=== PATIENT | female | born 1940 | race Caucasian/White ===

== ENCOUNTER → 2018-02-25 | Outpatient (CLI) | payer MEDICARE ==
[~2018-02-25] MED LIST: GADOBUTROL 7.5 MMOL/7.5 ML (GADAVIST) VIAL IV ONE
[2018-02-25 11:11] LABS: CREATININE SERUM 0.93 MG/DL (0.60-1.30)
--- NOTE | 2018-02-25 12:55 | Diagnostic Imaging Report ---
INDICATION: Mid spine pain and history of uterine cancer. TECHNIQUE: Multiplanar and multisequence acquisitions were acquired through the thoracic spine without the use of gadolinium. FINDINGS: There is slight accentuation of the normal thoracic kyphosis. There is a minimal compression fracture involving the superior endplate of T7. There does appear to be some edema suggesting this is acute. There is also mild chronic compression fracture of T9. The remaining thoracic vertebral body heights are well maintained. There is benign-appearing hemangioma in the T6 vertebral body. The visualized portions of the spinal cord are normal in signal intensity and morphology. Conus medullaris is seen at L1 and is normal in appearance. There is some mild broad-based annular bulging at T12-L1 where there is slight effacement of the ventral thecal sac. There is no other focal disc extrusion or high-grade spinal stenosis. There are no other focal soft tissue abnormalities. IMPRESSION: 1. Minimal acute compression fracture involving the superior endplate of T7. 2. Chronic T9 compression fracture with approximately loss of 15% vertebral body height. 3. Mild annular bulging at T12-L1 with slight effacement of the ventral thecal sac. 4. Otherwise, mild diffuse thoracic spondylosis. Dictated by: Dictated on workstation # [id number]
--- NOTE | 2018-02-25 16:52 | Diagnostic Imaging Report ---
INDICATION: Mid back pain. COMPARISON: Thoracic spine MRI performed concurrently. TECHNIQUE: Anterior and posterior scintigraphic images of the whole body were obtained after the intravenous injection of 26.7 mCi of Tc-99m MDP. FINDINGS: Linear bandlike radiotracer activity in the superior endplate of T7 is compatible with compression fracture seen on MRI. No additional abnormal foci of radiotracer activity. Normal activity within the kidneys and urinary bladder is identified. IMPRESSION: Acute to subacute compression fracture of T7 vertebral body, more completely detailed on thoracic spine MRI report, dictated separately. Dictated by: Dictated on workstation # [id number]
== END ==
LOC: RAD 10:37
PROVIDERS: ATTEND Orthopaedic Surgery
DX: M48.54XA Collapsed vertebra, not elsewhere classified, thoracic region, initial encounter for fracture (principal); M51.25 Other intervertebral disc displacement, thoracolumbar region; M47.814 Spondylosis without myelopathy or radiculopathy, thoracic region; Z85.42 Personal history of malignant neoplasm of other parts of uterus
CPT/HCPCS: 36415; 72157; 78306; 82565; 84520

== ENCOUNTER → 2019-09-22 | Outpatient (CLI) | payer MEDICARE, OTHER ==
--- NOTE | 2019-09-22 12:48 | Diagnostic Imaging Report ---
INDICATION: Postmenopausal state. COMPARISON: None available. FINDINGS: AP Spine L1-L4: [BMD (g/cm2): 1.041] [T-Score: -1.3] [Z-Score: 0.9] [BMD Previous: NA] [BMD % Change: NA] LT Hip Neck: [BMD (g/cm2): 0.598] [T-Score: -3.2] [Z-Score: -0.9] LT Hip Total: [BMD (g/cm2):0.634] [T-Score:-3.0] [Z-Score: -0.8] [BMD Previous: NA] [BMD % Change: NA] RT Hip Neck: [BMD (g/cm2):0.617] [T-Score:-3.0] [Z-Score:-0.7] RT Hip Total: [BMD (g/cm2):0.627] [T-score:-3.0] [Z-Score:-0.9] [BMD Previous:NA] [BMD % Change:NA] *Indicates significant change from prior examination based on 95% confidence level. World Health Organization criteria for BMD interpretation classify patients as Normal (T-score at or above -1.0), Osteopenic (T-score between -1.0 and -2.5) or Osteoporotic (T-score at or below -2.5). LIMITATIONS AND MODIFICATION: None. FRACTURE RISK (FRAX SCORE): The ten year probability of (%): Major Osteoporotic Fracture: [30.0] Hip Fracture: [14.4] IMPRESSION: 1. Osteoporosis. 2. Baseline examination. 3. See below National Osteoporosis Foundation guidelines on when to potentially initiate pharmacologic therapy. Based on the National Osteoporosis Foundation Guidelines, pharmacologic treatment should be initiated in any of the following, unless clinical conditions suggest otherwise: * Any patient with prior fragility fracture of the hip or vertebrae. A spine fracture indicates 5X risk for subsequent spine fracture and 2X risk for subsequent hip fracture. * Osteoporosis (T-score <-2.5). * Postmenopausal women and men age 50 and older with low bone mass/osteopenia (T-score between -1.0 and -2.5) by DXA and 10-year major osteoporotic fracture greater than 20% or a 10-year probability of hip fracture greater than 3%. These fracture risks are supplied above in the FRAX score, if applicable. * Clinician judgement and/or patient preferences may indicate treatment for people with 10-year fracture probabilities above or below these levels. Dictated by: Dictated on workstation # [id number]
== END ==
LOC: RAD 10:08
PROVIDERS: ATTEND Family Medicine
DX: M81.0 Age-related osteoporosis without current pathological fracture (principal); Z78.0 Asymptomatic menopausal state
CPT/HCPCS: 77080

== ENCOUNTER 2021-12-03 19:01 | Inpatient (IN) | payer MEDICARE, OTHER ==
[~2021-12-03] VITALS: Ht 155 cm; Wt 51.7 kg
--- OUTSIDE RECORDS SUMMARY | 2021-12-03 19:06 | XMS REPORT | Clinical Summary ---
Author Author [facility] Organization [facility] Address Unknown Phone Unavailable Care Team Providers Care Credit Historian Name Role Phone Sandra Garcia MD PCP Allergies Comments Active Allergy Reactions Severity Noted Date Legs went numb Lisinopril Other (See 04/14/2009 Comments) Medications End Date Status Medication Sig Dispensed Refills Start Date Active amLODIPine (NORVASC) 10 Take 10 mg by 0 MG tablet mouth every morning. Active traMADol (ULTRAM) 50 mg Take 100 mg 0 tablet by mouth as needed. Active omega-3 fatty acids-fish Take 1 0 oil 340-1,000 mg capsule by mouth daily. Active garlic cap Take 1,000 mg 0 by mouth daily. Active aspirin 81 MG EC tablet Take 81 mg by 0 mouth daily. Active atorvastatin (LIPITOR) 40 Take 1 tablet 30 tablet 2 MG tabletIndications: (40 mg total) 9 prevention of by mouth cerebrovascular accident nightly. Active ondansetron (ZOFRAN) 8 MG Take 1 tablet 30 tablet 2 tabletIndications: (8 mg total) 1 Neuroendocrine tumor by mouth every 12 (twelve) hours as needed for nausea (for breakthrough nausea and vomiting). Active loperamide (IMODIUM) 2 mg Take 2 30 capsule 2 capsuleIndications: capsules (4 1 Neuroendocrine tumor mg) by mouth at the onset of diarrhea, then 1 capsule (2 mg) by mouth every 2 hours until diarrhea-free for 12 hours. Active cholecalciferol, vitamin Take 2,000 0 D3, 50 mcg (2,000 unit) Units by cap capsule mouth daily. 10/27/2022 Active apixaban (ELIQUIS) 5 mg Take 1 tablet 60 tablet 11 tablet (5 mg total) 1 by mouth 2 (two) times a day. 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 MRI negative for CVA Left arm weakness for about 3 weeks. C T L shoulder with likely full thickness tear of supraspinatus tendon. - ECHO with bubble study today - APT: ASA and Plavix (previously on A only) - MRI head with chronic small vessel di sease - Risk stratification: A1C 6.1, FLP at outside facility with LDL at 140, mansi start High intensity statin, Lipito r 40 mg - Neurology consulted, appreciate them following - PT/OT, and rehab medicine consults: plan for HH vs outpatient PT - DVT ppx with SCDs - Case management for discharge kieran valadez Bilateral carotid artery stenosis 11/22/2018 Last Assessment & Plan: Formatting of this note might be differ ent from the original. Imaging done in Mar, 2018 showed signif icant narrowing of both external carotid arteries at the carotid bifurca tions, right internal carotid artery 60-80% stenosis, and 30-50% stenosis of the origin of the left internal carotid artery -MRA head and neck: 60% stenosis of pro ximal R ICA and 25% stenosis of prox L ICA -Vascular surgery consulted -Continue with ASA, Plavix and statin Essential hypertension 11/22/2018 Last Assessment & Plan: Formatting of this note might be differ ent from the original. Adequately controlled, cont home meds Acute pain of left shoulder 11/22/2018 Last Assessment & Plan: Formatting of this note might be differ ent from the original. Worsening left shoulder pain over the p ast 3 weeks, with left X-Ray from OSH reporting bursitis -CT Left shoulder to evaluate the joint , surrounding lymph nodes, and the left axilla lesions and to rule out sep tic joint (though less likely given normal WBC, no erythema or edema) Left bundle branch block (LBBB) 11/22/2018 Last Assessment & Plan: Formatting of this note might be differ ent from the original. Unclear if new, pt denies any cardiac i ssues -Monitor on telemetry -ECHO planned for 11/24 -Would likely benefit from ischemic ravin luation, pending ECHO, can likely be done on an outpatient basis as has no a ctive anginal complaints Weight loss 11/22/2018 Last Assessment & Plan: Formatting of this note might be differ ent from the original. -Nutrition consult Controlled type 2 diabetes mellitus without complicat ion, without long-term 11/22/2018 current use of insulin Last Assessment & Plan: Formatting of this note might be differ ent from the original. Taken off metformin in April due to hypo glycemia -FSBS AC/HS -SSI Level 2 -A1c 6.1 -Hypoglycemia protocol Tobacco abuse 11/22/2018 Last Assessment & Plan: Formatting of this note might be differ ent from the original. Has been using Nicoderm patch for the p ast month. Has 62 pack year history -Continue with Nicoderm patch lobsterman current use of anticoagulant Resolved Problems Problem Noted Date Resolved Date Abscess of left axilla 11/22/2018 11/25/2018 Last Assessment & Plan: Formatting of this note might be differ ent from the original. Worsening pain and growing abscess in l eft axilla -discussed with Pharmacy, will cover wi th Ancef -CT Left shoulder to further access, no abscess noted -Derm consulted Encounters Care Team Description Date Type Specialty Jenn Pickard RN 11/14/2021 Orders Only Medical Oncology Lashaun Hodge RN ANP-BC Paroxysmal atrial fibrillation (HCC) (Pr imary Dx); Essential hypertension; Controlled type 2 diabetes mellitus without complication, without long-term current use of insulin (HCC); Left bundle branch block (LBBB) 11/08/2021 Office Visit Cardiology Ela Gordon RN 11/06/2021 Abstract Cardiology Lashaun Hodge RN ANP-BC 11/01/2021 Documentation Cardiology Ruth Hernandez RN Cardiology test results 10/26/2021 Telephone Cardiology Micki Soria RN BP log 10/02/2021 Telephone Cardiology Jorge Luis Gaming MD 09/25/2021 Telephone Cardiology Bernadette Gilmore MD Rutherford, Barry D, MD Essential hypertension (Primary Dx); Neuroendocrine tumor; Bradycardia; Tobacco abuse; Current smoker; Moderate malnutrition (HCC) 09/25/2021 Initial consult Cardiology Rosa Hope RN 09/25/2021 Telephone Cardiology Jorge Luis Gaming MD 09/22/2021 Documentation Cardiology Ela Gordon RN 09/21/2021 Abstract Cardiology Therese Neri NUT GRADER 09/21/2021 Telephone Medical Oncology Bernadette Gilmore MD Neuroendocrine tumor (Primary Dx) 09/20/2021 Hospital Infusion Therapy Encounter Bernadette Gilmore MD Neuroendocrine tumor (Primary Dx); Metastasis to bone (HCC) 09/20/2021 Office Visit Medical Oncology Rasheeda Bull RN 09/15/2021 Telephone Medical Oncology MD Anel 09/11/2021 Documentation Radiation Therapy Bernadette Gilmore MD Ortiz, Teresa, MA Neuroendocrine tumor; Bradycardia 09/06/2021 Nurse Only Cardiology Bernadette Gilmore MD Neuroendocrine tumor 09/06/2021 Hospital Radiology Encounter Delia Michaels RN 09/06/2021 Telephone Cardiology Rasheeda Bull RN 09/06/2021 Telephone Medical Oncology Sandra Garcia MD 09/05/2021 Hospital Infusion Therapy Encounter Bernadette Gilmore MD Neuroendocrine tumor (Primary Dx); Bradycardia; Small bowel tumor 09/05/2021 Office Visit Medical Oncology Bernadette Gilmore MD Neuroendocrine tumor 09/05/2021 Lab Lab Rasheeda Bull RN 09/05/2021 Telephone Medical Oncology from Last 3 Months Immunizations Name Administration Dates Next Due Influenza, High Dose 08/22/2018, 09/07/2016, Seasonal, Preservative-free Novel [id number], 12/21/2009 All Formulations Pneumococcal Conjugate 08/19/2015 13-Valent Pneumococcal 08/22/2018 Polysaccharide 23-Valent Family History Medical History Relation Name Comments Heart disease Brother 1 Aneurysm Brother 2 Aneurysm Daughter Heart disease Mother Lung cancer Sister Relation Name Status Comments Brother 1 Brother 2 Daughter Mother Sister Social History Date Tobacco Use Types Packs/Day Years Used Current Some Day Smoker Cigarettes 0.25 62 Smokeless Tobacco: Never Used Comments Alcohol Use Standard Drinks/Week No 0 (1 standard drink = 0.6 o z pure alcohol) Sex Assigned at Date Recorded Female 06/14/2019 7:51 AM CDT Last Filed Vital Signs Reading Time Taken Comments Vital Sign 164/118 11/08/2021 3:21 PM [employer]ANE [employer]TAIN reg Blood Pressure 40 11/08/2021 3:21 PM [employer] [employer] Pulse 36.7 C (98 F) 11/08/2021 3:21 PM [employer] [employer] Temperature 20 09/20/2021 8:59 AM CDT Respiratory Rate 96% 09/20/2021 8:59 AM CDT Oxygen Saturation - - Inhaled Oxygen Concentration 52.6 kg (116 lb) 11/08/2021 3:21 PM [employer] [employer] Weight 154.9 cm (5' 1") 11/08/2021 3:21 PM [employer] [employer] Height 21.92 11/08/2021 3:21 PM [employer] [employer]TAIN Body Mass Index Plan of Treatment Care Team Description [place] [id number] [address] 12/08/2021 Office Visit Medical Oncology 12/08/2021 Appointment Infusion Therapy Ninfa Phillips MD [facility] [address] [phone] 06/19/2022 Office Visit Primary Care Health Maintenance Due Date Last Done Comments Diabetes Mellitus 1940 Ophthalmology Exam Diabetes Mellitus Urine 1940 Microalbumin Medicare Annual Wellness 1940 Spirometry # 1940 Td/Tdap# 1940 Tobacco Cessation 1940 Counseling # Diabetes Mellitus Foot 1951 Exam Zoster Vaccine# (1 of 2) 1991 Advance Care Plan 2006 Conversation Needed # Depression Screening 2006 PHQ-9 # Osteoporosis Screening 2006 Diabetes Mellitus 05/24/2019 11/23/2018 Hemoglobin A1C Lipid Screening 11/23/2019 11/23/2018 Influenza Vaccine (#1) 2021 08/19/2019, 08/22/2018, 09/07/2016, Additional history exists COVID-19 Vaccine (4 - 04/11/2022 10/12/2021, Booster for Moderna 03/08/2021, series) 02/08/2021 Fall Risk Assessment # 08/29/2022 08/29/2021 Pneumococcal Vaccine: 65+ Completed 08/22/2018, Years 08/19/2015 Implants Device Identifier Shelf Expiration Date Model / Serial / L ot Implanted Type Area Manufactur er Eye Lenses Procedures Comments Procedure Name Priority Date/Time Associated Diag nosis ECG Routine 11/08/2021 Paroxysmal atri al 3:18 PM [employer]PLANE CAPTAIN fibrillation (HCC) Essential hypertension Controlled type 2 diabetes mellitus without complication, without long-term current use of insulin (HCC) CARDIAC MONITORING PATCH Routine 10/18/2021 Neuro endocrine tumor 14 DAY 9:08 AM AIRPLANE CAPTAIN Bradycardia Essential hypertension Tobacco abuse Current smoker Moderate malnutrition (HCC) ECG STAT 09/06/2021 Neuroendocrine tumor 2:15 PM CDT Bradycardia NM DOTATATE PET CT SKULL Routine 09/06/2021 Neuro endocrine tumor BASE TO THIGH 9:16 AM CDT COMPREHENSIVE METABOLIC STAT 09/05/2021 Neuroe ndocrine tumor PANEL 9:16 AM CDT CBC AND DIFF (MANUAL DIFF STAT 09/05/2021 Neur oendocrine tumor IF NECESSARY) 9:16 AM CDT from Last 3 Months Results * Electrocardiogram (ECG) (11/08/2021 3:18 PM AIRPLANE CAPTAIN) Only the most recent of 2 results within the time period is included. QRSd 138 TRACEMASTER QT 453 TRACEMASTER QTC 552 TRACEMASTER ECGHR 89 TRACEMASTER ECGPR 136 TRACEMASTER Specimen Narrative TRACEMASTER - 11/08/2021 5:25 PM [employer]PLANE [employer]TAIN [facility] Test Date: 2021-11-08 Pat Name: CIELO HALL Department: [facility] Room: Gender: Female Desk Assistant: [id number] : 1940 Requested By: LASHAUN HODGE Order Number: [id number] Reading MD: Maricel Garvin Measurements Intervals [place] Rate: 89 P: 83 MD: 136 QRS: -24 QRSD: 138 T: 141 QT: 453 QTc: 552 Interpretive Statements Sinus rhythm Atrial premature complexes Left bundle branch block Electronically Signed On 11-08-2021 17:25:26 AIRPLANE CAPTAIN by Maricel Garvin Procedure Note Maricel Garvin MD - 11/08/2021 [facility] Test Date: 2021-11-08 Pat Name: CIELO HALL Department: [facility] Room: Gender: Female Desk Assistant: [id number] : 1940 Requested By: LASHAUN HODGE Order Number: [id number] Reading MD: Maricel Garvin Measurements Intervals [place] Rate: 89 P: 83 MD: 136 QRS: -24 QRSD: 138 T: 141 QT: 453 QTc: 552 Interpretive Statements Sinus rhythm Atrial premature complexes Left bundle branch block Electronically Signed On 11-08-2021 17:25:26 AIRPLANE CAPTAIN by Maricel Garvin Performing Organization Address City/State/ZIP Code P frida Number [facility]AC[facility]ASTER * Cardiac Monitoring Patch (14 day) (10/18/2021 9:08 AM AIRPLANE CAPTAIN) Modality Anatomical Region Laterality Cardiac Electrophysiology Specimen Narrative TRACEMASTER - 10/18/2021 11:11 AM AIRPLANE CAPTAIN [facility] Test Date: 2021-10-18 Pat Name: CIELO HALL Department: Room: Gender: Female Desk Assistant: : 1940 Requested By: JORGE LUIS GAMING Order Number: [id number] Reading MD: Doni Jj Interpretive Statements [facility] [place] Office [address] [place] [address] 3128 MONITORING PATCH REPORT Book Reviewer Date: 2021-10-18 RE: Cielo Hall : 1940 REFERRING PHYSICIAN: Dr. Sidney Gaming REASON FOR MONITORING PATCH: Bradycardia DATE RANGE: 09/25/21 to 10/09/21 NUMBER OF PAUSES: 0 CONCLUSIONS: 1. Paroxysmal atrial fibrillation with a 5 minute run and a 3 minute run - <1% overall burden. Avg HR in atrial fib = 93 bpm. 2. Numerous other short SVT episodes, wh ich may represent atrial tach vs. short runs of atrial fib. 3. Predominant rhythm was sinus rhythm ( 46-120 bpm, avg 63 bpm). No pauses. 4. Diary entries correlated with sinus r hythm and PACs. Electronically Signed On 10-18-2021 11:11:07 AIRPLANE CAPTAIN by Doni Jj Procedure Note Doni Jj MD - 10/18/2021 [facility] Test Date: 2021-10-18 Pat Name: CIELO HALL Department: Room: Gender: Female Desk Assistant: : 1940 Requested By: JORGE LUIS GAMING Order Number: [id number] Reading MD: Doni Jj Interpretive Statements [facility] [place] Office [address] [place] [address] 2317 MONITORING PATCH REPORT Book Reviewer Date: 2021-10-18 RE: Cielo Hall : 1940 REFERRING PHYSICIAN: Dr. Sidney Gaming REASON FOR MONITORING PATCH: Bradycardia DATE RANGE: 09/25/21 to 10/09/21 NUMBER OF PAUSES: 0 CONCLUSIONS: 1. Paroxysmal atrial fibrillation with a 5 minute run and a 3 minute run - <1% overall burden. Avg HR in atrial fib = 93 bpm. 2. Numerous other short SVT episodes, wh ich may represent atrial tach vs. short runs of atrial fib. 3. Predominant rhythm was sinus rhythm ( 46-120 bpm, avg 63 bpm). No pauses. 4. Diary entries correlated with sinus r hythm and PACs. Electronically Signed On 10-18-2021 11:11:07 AIRPLANE CAPTAIN by Doni Jj Performing Organization Address City/State/ZIP Code P frida Number [facility]ACEMASTER * NM Dotatate Pet CT skull base to thigh (09/06/2021 9:16 AM CDT) Modality Anatomical Region Laterality Nuclear Medicine Specimen Impressions [facility] - 09/06/2021 11:55 AM CDT 1. Evidence of disease progression with mildly worsened diffuse osseous metastatic lesions. 2. Unchanged size of abdominal, retroper itoneal, and mesenteric lymphadenopathy, with increased radiotracer uptake compared to prior. 3. Changes of partial small bowel resect ion without abnormal tracer uptake adjacent to surgical margins. ATTESTATION STATEMENT: The Staff Radiologist has personally reviewed the images and dictated, reviewed, or edited the final report. READING SITE: [facility] Narrative [facility] - 09/06/2021 11:55 AM CDT Patient: CIELO HALL Sex#: Citlali #: 1940 [place]#: [id number] Location: [facility] PET Ordering Provider: BERNADETTE GILMORE Procedure Requested: [id number] NM DOTATATE PET CT SKULL BASE TO THIGH Reason for Exam: Neuroendocrine tumor Exam Ordered: 09/06/2021 0654 Begin exam date/time: 09/06/2021 0654 Exam Date/Time: 09/06/2021 0916 INDICATION: Neuroendocrine tumor of the small bowel, status post small bowel resection COMPARISON FDG PET-CT: PET/CT May 2021. OTHER STUDIES USED FOR COMPARISON: CT abdomen and pelvis April 04, 2021. TECHNIQUE: Nuclear medicine PET scanning was performed from the skull base to the mid-thigh after the intravenous administration of 4.2 mCi Gallium 68 DOTATATE. Concurrent non-contrasted CT scanning was performed for attenuation correction and localization purposes only. These images do not constitute a diagnostic quality CT examination and are not used to diagnose disease independently of the PET images. FINDINGS: Head/Face: Physiologic uptake in the pituitary gland, extraocular muscles, large salivary glands and oropharynx. Neck: Physiologic uptake in the neck musculature.Physiologic activity in the thyroid. Lungs/Pleura: No abnormal uptake. Similar subsegmental atelectasis in the middle lobe and lingula. Mediastinum/Heart/Pericardium: Physiologic activity. Moderate thoracic atherosclerosis. Moderate coronary artery atherosclerosis. Thoracic Nodes: No abnormal uptake. Hepatobiliary: Physiological activity. Spleen: Physiological activity. Pancreas: Physiological activity. Adrenals: Physiological activity. Kidneys/Ureters/Bladder: Physiologic excretory activity. Abdominopelvic Nodes: Redemonstration of retroperitoneal lymphadenopathy including 1.6 cm short axis left para-aortic lymph node (series 4 image 99) with SUV max 51.0, previously measur ing 1.6 cm with SUV max 30.1. Redemonstration of periduodenal lymph node measuring 0.9 cm short axis (series 4 image 105) with SUV max 35.0, previously measuring 0.9 cm with SUV max 26.0. Bowel/Peritoneum/Mesentery: Redemonstrated clustered mesenteric lymphadenopathy measuring 2.9 x 2.0 cm (series 4 image 117), with SUV max 51.6, previously measuring 3.4 x 2.1 cm with SUV max 28.4. Postsurgical changes of right lower quadrant partial small bowel resection without adjacent abnormal radiotracer uptake. Colonic diverticulosis without diverticulitis. Advanced atherosclerosis of the abdominal aorta and branch vessels. Pelvic Organs: No abnormal uptake. Changes of hysterectomy. Bones/Soft Tissues: New ill-defined areas of radiotracer uptake involving the lateral left sacrum (series 650 image 48) with SUV max 6.9, as well as the left ischium (series 6 image 8 image 52). Additional diffuse osseous metastatic lesions redemonstrated, including left posterior acetabular lesion (series 608 image 31) with SUV max 33.4, previously 33.3. Stable subcutaneous density with subcentimeter calcifications along the inferior margin of the left gluteal fold measuring roughly 5.1 x 2.3 cm on image 57 series 4. No associated radiotracer activity. Correlate clinically to exclude sequela of pressure ulcer. Attention on follow-up imaging. Procedure Note Nestor Cano MD - 09/06/2021 Patient: CIELO HALL Sex#: F #: [id number] [place]#: [id number] Location: [facility] PET Ordering Provider: BERNADETTE GILMORE Procedure Requested: [id number] NM DOTATATE PET CT SKULL BASE TO THIGH Reason for Exam: Neuroendocrine tumor Exam Ordered: 09/06/2021 0654 Begin exam date/time: 09/06/2021 0654 Exam Date/Time: 09/06/2021 0916 INDICATION: Neuroendocrine tumor of the small bowel, status post small bowel resection COMPARISON FDG PET-CT: PET/CT May 2021. OTHER STUDIES USED FOR COMPARISON: CT abdomen and pelvis April 04, 2021. TECHNIQUE: Nuclear medicine PET scanning was performed from the skull base to the mid-thigh after the intravenous administration of 4.2 mCi Gallium 68 DOTATATE. Concurrent non-contrasted CT scanning was performed for attenuation correction and localization purposes only. These images do not constitute a diagnostic quality CT examination and are not used to diagnose disease independently of the PET images. FINDINGS: Head/Face: Physiologic uptake in the pituitary gland, extraocular muscles, large salivary glands and oropharynx. Neck: Physiologic uptake in the neck musculature.Physiologic activity in the thyroid. Lungs/Pleura: No abnormal uptake. Similar subsegmental atelectasis in the middle lobe and lingula. Mediastinum/Heart/Pericardium: Physiologic activity. Moderate thoracic atherosclerosis. Moderate coronary artery atherosclerosis. Thoracic Nodes: No abnormal uptake. Hepatobiliary: Physiological activity. Spleen: Physiological activity. Pancreas: Physiological activity. Adrenals: Physiological activity. Kidneys/Ureters/Bladder: Physiologic excretory activity. Abdominopelvic Nodes: Redemonstration of retroperitoneal lymphadenopathy including 1.6 cm short axis left para-aortic lymph node (series 4 image 99) with SUV max 51.0, previously measur ing 1.6 cm with SUV max 30.1. Redemonstration of periduodenal lymph node measuring 0.9 cm short axis (series 4 image 105) with SUV max 35.0, previously measuring 0.9 cm with SUV max 26.0. Bowel/Peritoneum/Mesentery: Redemonstrated clustered mesenteric lymphadenopathy measuring 2.9 x 2.0 cm (series 4 image 117), with SUV max 51.6, previously measuring 3.4 x 2.1 cm with SUV max 28.4. Postsurgical changes of right lower quadrant partial small bowel resection without adjacent abnormal radiotracer uptake. Colonic diverticulosis without diverticulitis. Advanced atherosclerosis of the abdominal aorta and branch vessels. Pelvic Organs: No abnormal uptake. Changes of hysterectomy. Bones/Soft Tissues: New ill-defined areas of radiotracer uptake involving the lateral left sacrum (series 650 image 48) with SUV max 6.9, as well as the left ischium (series 6 image 8 image 52). Additional diffuse osseous metastatic lesions redemonstrated, including left posterior acetabular lesion (series 608 image 31) with SUV max 33.4, previously 33.3. Stable subcutaneous density with subcentimeter calcifications along the inferior margin of the left gluteal fold measuring roughly 5.1 x 2.3 cm on image 57 series 4. No associated radiotracer activity. Correlate clinically to exclude sequela of pressure ulcer. Attention on follow-up imaging. IMPRESSION 1. Evidence of disease progression with mildly worsened diffuse osseous metastatic lesions. 2. Unchanged size of abdominal, retroper itoneal, and mesenteric lymphadenopathy, with increased radiotracer uptake compared to prior. 3. Changes of partial small bowel resect ion without abnormal tracer uptake adjacent to surgical margins. ATTESTATION STATEMENT: The Staff Radiologist has personally reviewed the images and dictated, reviewed, or edited the final report. READING SITE: [facility] Performing Organization Address City/State/ZIP Code P frida Number [id number] * Comprehensive Metabolic Panel (09/05/2021 9:16 AM CDT) Sodium 141 133 - 147 MEQ/L [facility] Potassium 4.9 3.5 - 5.3 MEQ/L [facility] Chloride 103 96 - 112 MEQ/L [facility] Carbon Dioxide 30 20 - 32 MEQ/L [facility] Anion Gap 8 5 - 17 [facility] Calcium 9.1 8.4 - 10.5 mg/dL [facility] Glucose 163 (H) 70 - 100 mg/dL [facility] Protein Total 7.5 6.0 - 8.2 g/dL [facility] Serum [facility] Albumin 3.8 3.5 - 5.0 g/dL [facility] Alkaline 82 42 - 140 IU/L [facility] Phosphatase [facility] Alanine 25 0 - 34 IU/L [facility] Aspartate 44 15 - 46 IU/L [facility] e Bilirubin Total 1.5 (H) 0.2 - 1.3 mg/dL [facility] Blood Urea 13 7 - 26 mg/dL [facility] Creatinine 1.0 0.4 - 1.1 mg/dL [facility] eGFR Female AA 64 60 - 200 [facility] mL/min/1.73sq [facility] eGFR Female 53 (L) 60 - 200 [facility] Non-AA mL/min/1.73sq [facility] Specimen Blood Performing Organization Address City/State/ZIP Code P frida Number [facility] [address] [place] [address] LABORATORIES [facility] [address] [place] [address] * CBC and Diff (manual diff if necessary) (09/05/2021 9:16 AM CDT) WBC 3.83 (L) 4.00 - 11.00 TH/uL [facility] RBC 5.04 (H) 4.00 - 5.00 MIL/uL [facility] Hemoglobin 13.4 12.0 - 15.0 g/dL [facility] Hematocrit 43 36 - 45 % [facility] [facility] MCV 86 80 - 99 fL [facility] MCH 27 27 - 34 pg [facility] MCHC 31 (L) 32 - 36 % [facility] RDW 20.2 (H) 11.5 - 14.5 % [facility] Platelet Count 146 140 - 400 TH/uL [facility] Nucleated RBCs 0 0 - 0 /100 [facility] % Neutrophils 57 45 - 78 % [facility] %Lymphocytes 26 15 - 47 % [facility] % Monocytes 9 0 - 12 % [facility] %Eosinophils 5 0 - 7 % [facility] %Basophils 2 0 - 2 % [facility] % Imm Grans 1 0 - 1 % [facility] # Granulocytes 2.21 1.70 - 6.80 TH/uL [facility] # Lymphocytes 1.01 1.00 - 3.30 TH/uL [facility] # Monocytes 0.35 0.20 - 0.90 TH/uL [facility] # Eosinophils 0.19 0.00 - 0.40 TH/uL [facility] # Basophils 0.07 0.00 - 0.10 TH/uL [facility] Specimen Blood Performing Organization Address City/State/ZIP Code P frida Number [facility] [address] [place] [address] LABORATORIES [facility] [address] [place] [address] from Last 3 Months Insurance Type Payer Benefit Subscriber ID Effective Phone Address Plan / Dates Group Medicare MEDICARE MEDICARE [id number] 2006-P [phone] WPS GHA PART A B resent ATTN CLAIMS DEPT [address] [place] [address] COMMERCIAL-NONCONTRACTED MISC [id number] 2013-P [address] [place] [id number] [place] [address] 1 Cielo Hall Personal/F Self [address] am[place] (Home) [place], [place] [address] Cielo Hall Personal/F Self [address] [place] (Home) [place] [address] 1 Advance Directives For more information, please contact: [phone] Patient Logistics Management Specialist Explanation Type Date Recorded Advance Directives and Living Will Power of Loan Clerk Health Care Directive Date Inactivated Comments Code Status Date Activated 06/23/2021 10:36 AM Full Code 04/18/2021 3:08 PM 11/25/2018 3:23 PM Full Code 11/22/2018 9:59 PM Care Teams Start Date End Date Credit Historian Relationship Specialty 11/22/18 Sandra Garcia MD PCP - General Family [address] Medicine [place], [place] [id number]
--- OUTSIDE RECORDS SUMMARY | 2021-12-03 19:06 | XMS REPORT | Encounter Summary ---
Author Author [facility] Organization [facility] Address Unknown Phone Unavailable Care Team Providers Care Research And Development Manager Name Role Phone Sandra Garcia MD PCP Reason for Visit * Reason Onset Date Comments Cardiology test results 10/26/2021 Encounter Details Care Team Description Date Type Department Ruth Hernandez RN Cardiology test results 10/26/2021 Telephone [facility] [address] [facility] [address] [place], [place] [id number] Social History Date Tobacco Use Types Packs/Day Years Used Current Some Day Smoker Cigarettes 0.25 62 Smokeless Tobacco: Never Used Comments Alcohol Use Standard Drinks/Week No 0 (1 standard drink = 0.6 o z pure alcohol) Sex Assigned at Date Recorded Female 06/14/2019 7:51 AM CDT documented as of this encounter Miscellaneous Notes * Telephone Encounter - Mehdi Bhatia RN - 10/27/2021 5:00 PM MANAGER SOFTWARE Pt's Daughter Muriel called in, expressing frustration resulting from Pt's frustr ation about her PAFib diagnosis and the cost of Eliquis. Was able to work with shayy edmondson to get Pt in with [facility] on 11/08. Muriel V/U and expressed thanks. Ed Savi reina to call Pt's insurance company to see if an alternative "blood thinner" might be cheaper. Also advised for Pt to continue taking Eliquis and that samples can be given out if Pt needs to apply for Pt assist program. Muriel V/U. GER SOFTWARE * Telephone Encounter - Margaux Call - 10/27/2021 3:14 PM MANAGER SOFTWARE 10/27 routing to [facility] to assist with scheduling this pt for first avail DEMETRICE GER SOFTWARE * Addendum Note - Marcela Cornelius RN - 10/27/2021 2:36 PM MANAGER SOFTWARE Addended by: MARCELA CORNELIUS on: 10/27/2021 02:36 PM Modules accepted: Orders GER SOFTWARE * Telephone Encounter - Marcela Cornelius RN - 10/27/2021 2:21 PM MANAGER SOFTWARE Pt called back, in reviewing chart we saw her for bradycardia and stopped metopr olol, off metoprolol heart rates were mostly in 60s and bp was on the lower side when she reported them, she is hesitant to start another bp medicine, she has no symptoms of palpitations or racing heart we agreed she will hold off on the di ltiazem and take just the eliquis she is going to keep a log of bp and heart rat e and see an DEMETRICE in a few weeks GER SOFTWARE * Telephone Encounter - Marcela Cornelius RN - 10/27/2021 12:34 PM MANAGER SOFTWARE Pt left message calling us back attempted to call back, lhusband answered and sh e was gone he will have her call us GER SOFTWARE * Telephone Encounter - Ruth Hernandez RN - 10/26/2021 1:40 PM MANAGER SOFTWARE Noted zio patch results and recs per Dr. Horne, called pt to discuss. Was only able to leave general message on VM stating we have her results and would l jon to discuss them and plan when she returns call to our nurse line, red team # provided. Did not update med list/send in Rx's until we speak to pt. GER SOFTWARE * Telephone Encounter - Ruth Hernandez RN - 10/26/2021 1:39 PM MANAGER SOFTWARE ----- Message from Tejas Trevino MD sent at 10/18/2021 11:46 AM MANAGER SOFTWARE ----- Note short runs of atrial fibrillation therefore start on Cardizem 120mgs daily and Eliquis 5mgs bid and see back in the office in 4 weeks GER SOFTWARE documented in this encounter Plan of Treatment Care Team Description [place] [address] [id number] 12/08/2021 Office Visit Medical Oncology 12/08/2021 Appointment [place] [address] [place] [id number] 06/19/2022 Office Visit Primary Care documented as of this encounter Visit Diagnoses Not on filedocumented in this encounter Care Teams Start Date End Date Research And Development Manager Relationship Specialty 11/22/18 Sandra Garcia MD PCP - General Family [address] [place] [address] documented as of this encounter
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
--- OUTSIDE RECORDS SUMMARY | 2021-12-03 19:06 | XMS REPORT | Encounter Summary ---
Author Author [facility] Organization [facility] Address Unknown Phone Unavailable Care Team Providers Care Dormitory Counselor Name Role Phone Sandra Garcia MD PCP Encounter Details Care Team Description Date Type Department Lashaun Pemberton RN ANP- [address] [facility] [address] [place], [place] [id number] 11/01/2021 Documentation [facility] [address] [facility] [address] [place], [place] [id number] Social History Date Tobacco Use Types Packs/Day Years Used Current Some Day Smoker Cigarettes 0.25 62 Smokeless Tobacco: Never Used Comments Alcohol Use Standard Drinks/Week No 0 (1 standard drink = 0.6 o z pure alcohol) Sex Assigned at Date Recorded Female 06/14/2019 7:51 AM CDT documented as of this encounter Plan of Treatment Care Team Description [place] [address] [facility] [address] [place] [address] 12/08/2021 Office Visit Medical Oncology 12/08/2021 Appointment Infusion Therapy Ninfa Phillips MD [address] [facility] [address] [place] [address] 06/19/2022 Office Visit Primary Care documented as of this encounter Visit Diagnoses Not on filedocumented in this encounter Care Teams Start Date End Date Dormitory Counselor Relationship Specialty 11/22/18 Sandra Garcia MD PCP - General [facility] [address] [place] [address] documented as of this encounter
--- OUTSIDE RECORDS SUMMARY | 2021-12-03 19:06 | XMS REPORT | Encounter Summary ---
Author Author [facility] Organization [facility] Address Unknown Phone Unavailable Care Team Providers Care Regulatory Technician Name Role Phone Sandra Garcia MD PCP Encounter Details Care Team Description Date Type Department Ela Gordon RN 11/06/2021 Abstract [facility] [address] [facility] [address] [place] [address] Social History Date Tobacco Use Types Packs/Day Years Used Current Some Day Smoker Cigarettes 0.25 62 Smokeless Tobacco: Never Used Comments Alcohol Use Standard Drinks/Week No 0 (1 standard drink = 0.6 o z pure alcohol) Sex Assigned at Date Recorded Female 06/14/2019 7:51 AM CDT documented as of this encounter Plan of Treatment Care Team Description [place] [address] [address] 12/08/2021 Office Visit Medical Oncology 12/08/2021 Appointment Infusion Therapy Ninfa Phillips MD [address] [facility] [address] [place] [address] 06/19/2022 Office Visit Primary Care documented as of this encounter Visit Diagnoses Diagnosis supervisor intermediates current use of anticoagulant documented in this encounter Care Teams Start Date End Date Regulatory Technician Relationship Specialty 11/22/18 Sandra Garcia MD PCP - General Family [address] [place] [address] documented as of this encounter
--- OUTSIDE RECORDS SUMMARY | 2021-12-03 19:06 | XMS REPORT | Clinical Summary ---
Author Author [facility] Organization [facility] Address Unknown Phone Unavailable Care Team Providers Care Project Management Intern Name Role Phone Bernadette Fan MD Unavailable Source Comments Some departments are not documenting in the electronic medical record. If you d o not see the information that you expected, contact Release of Information in [facility] [employer] Information Management department at [phone] for further assistan ce in locating additional records.[facility] Allergies Not on File Medications Not on file Active Problems Not on file Immunizations Name Administration Dates Next Due Social History Date Tobacco Use Types Packs/Day Years Used Never Assessed Sex Assigned at Date Recorded Not on file Last Filed Vital Signs Not on file Plan of Treatment Health Maintenance Due Date Last Done Comments MEDICARE ANNUAL WELLNESS 1941 VISIT DTAP/TDAP VACCINES (1 - 1959 Tdap) HEPATITIS C SCREENING 1959 PHYSICAL (COMPREHENSIVE) 1959 EXAM SHINGLES RECOMBINANT 1991 VACCINE (1 of 2) OSTEOPOROSIS 2006 SCREENING/MONITORING PNEUMONIA (PPSV23) 2006 VACCINE (1 of 1 - PPSV23) INFLUENZA VACCINE 06/25/2021 07/07/2020 COVID-19 VACCINE (3 - 09/07/2021 03/08/2021, Booster for Moderna 02/08/2021 series) Results Not on filefrom Last 3 Months Insurance Type Payer Benefit Subscriber ID Effective Phone Address Plan / Dates Group Medicare MEDICARE MEDICARE [id number] 2006-P [phone] [address] [place] [address] [id number] 1 Advance Directives Patient Consumer Insight Manager Explanation Type Date Recorded Advance Directive/DPOA Care Teams Start Date End Date Project Management Intern Relationship Specialty 07/06/21 Bernadette Fan MD [facility] [address] [place] [address]
--- OUTSIDE RECORDS SUMMARY | 2021-12-03 19:06 | XMS REPORT | Encounter Summary ---
Author Author [facility] Organization [facility] Address Unknown Phone Unavailable Care Team Providers Care Mold Builder Name Role Phone Sandra Garcia MD PCP Encounter Details Care Team Description Date Type Department Jenn Pickard RN 11/14/2021 Orders Only [facility] [address] [facility] [address] [place] [address] Social History Date Tobacco Use Types Packs/Day Years Used Current Some Day Smoker Cigarettes 0.25 62 Smokeless Tobacco: Never Used Comments Alcohol Use Standard Drinks/Week No 0 (1 standard drink = 0.6 o z pure alcohol) Sex Assigned at Date Recorded Female 06/14/2019 7:51 AM CDT documented as of this encounter Plan of Treatment Care Team Description [place] [address] [address] 12/08/2021 Office Visit Medical Oncology 12/08/2021 Appointment Infusion Therapy Ninfa Phillips MD [address] [facility] [address] [place] [address] 06/19/2022 Office Visit Primary Care documented as of this encounter Visit Diagnoses Not on filedocumented in this encounter Care Teams Start Date End Date Mold Builder Relationship Specialty 11/22/18 Sandra Garcia MD PCP - General Family [address] [place] [address] documented as of this encounter
[2021-12-03] MEDS ORDERED: morphine INJ 10 MG/ML 1ML (SYR OR VIAL) IVP STA (19:30)
[2021-12-03 19:40] LABS: HEMATOCRIT 38 % (35-52); HEMOGLOBIN 11.7 g/dL (11.5-16.0); MEAN CORPUSCULAR HEMOGLOBIN 26 pg (25-34); MEAN CORPUSCULAR VOLUME 85 fL (80-99); WHITE BLOOD COUNT 4.8 10^3/uL (4.3-11.0)
[2021-12-03 19:41] LABS: BASOPHILS % (AUTO) 1 % (0-10); EOSINOPHILS # (AUTO) 0.1 10^3/uL (0.0-0.3); EOSINOPHILS % (AUTO) 2 % (0-10); LYMPHOCYTES # (AUTO) 0.9 X 10^3 (1.0-4.0); LYMPHOCYTES % (AUTO) 19 % (12-44); MEAN CORPUSCULAR HGB CONC 31 g/dL (32-36); MONOCYTES # (AUTO) 0.5 X 10^3 (0.0-1.0); MONOCYTES % (AUTO) 10 % (0-12); NEUTROPHILS # (AUTO) 3.3 X 10^3 (1.8-7.8); NEUTROPHILS % (AUTO) 68 % (42-75); PLATELET COUNT 133 10^3/uL (130-400)
[2021-12-03 19:58] LABS: CALCIUM 8.7 MG/DL (8.5-10.1); CREATININE SERUM 0.89 MG/DL (0.60-1.30); POTASSIUM 4.2 MMOL/L (3.6-5.0)
[2021-12-03 19:59] LABS: ALBUMIN 3.5 GM/DL (3.2-4.5); BILIRUBIN,TOTAL 0.7 MG/DL (0.1-1.0); TOTAL PROTEIN 7.3 GM/DL (6.4-8.2)
--- NOTE | 2021-12-03 20:04 | Diagnostic Imaging Report ---
INDICATION: Left hip pain. COMPARISON: None. EXAMINATION: Three views of the left femur. FINDINGS: No overt fracture or dislocation. Articular surfaces are age-appropriate. No osseous lesion. IMPRESSION: No fracture identified. Dictated by: Dictated on workstation # [id number]
--- NOTE | 2021-12-03 20:05 | Diagnostic Imaging Report ---
INDICATION: Left hip pain, fall. COMPARISON: None. EXAMINATION: Single view of the pelvis and two views of the left hip. FINDINGS: No overt fracture or dislocation. No osseous lesion is seen. IMPRESSION: No fracture identified. Dictated by: Dictated on workstation # [id number]
--- NOTE | 2021-12-03 21:10 | ED Hip Pain/Injury ---
General Chief Complaint: Hip/Pelvic Problems Stated Complaint: LT HIP PAIN Nursing Triage Note: pt arrives per EMS w/ c/o left hip pain. Pt was standing when she felt a "pop" in her hip, and then fell. Only c/o left hip pain. 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 Patient's reports standing and feeling a sudden left hip pop which felt sharp in her left hip. Patient then fell to her knees. Complains of left hip pain. Pain is sharp moderate to severe worse with movement. Patient left hip immobilized by EMS and fentanyl given prior to ED arrival. Left lower extremity neurovascularly intact. Left leg foreshortening without obvious deformity or rotation. No other symptoms or complaints Timing/Duration: just prior to arrival Severity: severe Location: hip (L) Method of Injury: other Modifying Factors: Improves With Other Associated Symptoms: other Allergies and Home Medications Allergies Coded Allergies: No Known Drug Allergies (Unverified , 02/25/18) Patient Home Medication List Home Medication List Reviewed: Yes Review of Systems Constitutional: see HPI EENTM: see HPI Respiratory: see HPI Cardiovascular: see HPI Gastrointestinal: see HPI Genitourinary: see HPI Musculoskeletal: see HPI Skin: see HPI Psychiatric/Neurological: See HPI Past Loduewa-Exrlqb-Oospeu Hx Patient Social History Tobacco Use?: Yes Tobacco type used: Cigarettes Smoking Status: Current Everyday Smoker Substance use?: No Alcohol Use?: No Pt feels they are or have been: No Immunizations Up To Date Influenza Vaccine Up-to-Date: Yes; Up-to-Date First/Initial COVID19 Vaccinat: Second COVID19 Vaccination Gary: Third COVID19 Vaccination Date: Past Medical History Surgery/Hospitalization HX: "Neuro-endocrine cancer" Hysterectomy, , cataracts Physical Exam Vital Signs Vital Signs - First Documented 12/03/21 19:37 Temp 36.6 Pulse 62 Resp 20 B/P (MAP) 184/52 (96) Capillary Refill : Less Than 3 Seconds Height, Weight, BMI Height: '" Weight: lbs. oz. kg; 20.00 BMI Method: General Appearance: Moderate Distress HEENT: PERRL/EOMI, Pharynx Normal Neck: Non Tender, Supple Cardiovascular: Regular Rate, Rhythm, No Edema, No Gallop Respiratory: Chest Non Tender, Lungs Clear Gastrointestinal: Non Tender, Soft Extremity: Pelvis Stable, Other (Left hip pain/tenderness, no deformity, left leg shortening no rotation.) Neurologic/Psychiatric: Alert, Oriented x3, No Motor/Sensory Deficits Progress/Results/Core Measures Results/Orders Lab Results Laboratory Tests Test 12/03/21 19:30 Range/Units White Blood Count 4.8 4.3-11.0 10^3/uL Red Blood Count 4.45 3.80-5.11 10^6/uL Hemoglobin 11.7 11.5-16.0 g/dL Hematocrit 38 35-52 % Mean Corpuscular Volume 85 80-99 fL Mean Corpuscular Hemoglobin 26 25-34 pg Mean Corpuscular Hemoglobin Concent 31 L 32-36 g/dL Red Cell Distribution Width 19.6 H 10.0-14.5 % Platelet Count 133 130-400 10^3/uL Mean Platelet Volume 9.0-12.2 fL Immature Granulocyte % (Auto) 1 % Neutrophils (%) (Auto) 68 42-75 % Lymphocytes (%) (Auto) 19 12-44 % Monocytes (%) (Auto) 10 0-12 % Eosinophils (%) (Auto) 2 0-10 % Basophils (%) (Auto) 1 0-10 % Neutrophils # (Auto) 3.3 1.8-7.8 X 10^3 Lymphocytes # (Auto) 0.9 L 1.0-4.0 X 10^3 Monocytes # (Auto) 0.5 0.0-1.0 X 10^3 Eosinophils # (Auto) 0.1 0.0-0.3 10^3/uL Basophils # (Auto) 0.0 0.0-0.1 10^3/uL Immature Granulocyte # (Auto) 0.1 0.0-0.1 10^3/uL Sodium Level 139 135-145 MMOL/L Potassium Level 4.2 3.6-5.0 MMOL/L Chloride Level 101 98-107 MMOL/L Carbon Dioxide Level 29 21-32 MMOL/L Anion Gap 9 5-14 MMOL/L Blood Urea Nitrogen 9 7-18 MG/DL Creatinine 0.89 0.60-1.30 MG/DL Estimat Glomerular Filtration Rate 61 BUN/Creatinine Ratio 10 Glucose Level 149 H 70-105 MG/DL Calcium Level 8.7 8.5-10.1 MG/DL Corrected Calcium 9.1 8.5-10.1 MG/DL Total Bilirubin 0.7 0.1-1.0 MG/DL Aspartate Amino Transf (AST/SGOT) 13 5-34 U/L Alanine Aminotransferase (ALT/SGPT) 6 0-55 U/L Alkaline Phosphatase 97 40-136 U/L Total Protein 7.3 6.4-8.2 GM/DL Albumin 3.5 3.2-4.5 GM/DL My Orders Orders - FIONA BARNES DO Cbc With Automated Diff (12/03/21 19:30) Comprehensive Metabolic Panel (12/03/21 19:30) Pelvis With Left Hip 2-3 View (12/03/21 19:30) Catheter(Urinary) Insert & Ass 03,15 (12/03/21 19:30) Morphine Injection (Morphine Injection (12/03/21 19:30) Femur 2 View Left (12/03/21 19:48) Ct Pelvis Wo (12/03/21 20:34) Vital Signs/I&O 12/03/21 12/03/21 19:37 19:50 Temp 36.6 36.1 Pulse 62 Resp 20 B/P (MAP) 184/52 (96) Blood Pressure Mean: 96 Departure Communication (Admissions) Pelvis left hip/left femur: No acute findings per radiology report CT pelvis: Ischium insufficiency fracture of left hip Patient unable to weight-bear secondary to pain. On pathological fracture identified on CT. Repeat pain medication given. Will admit to [facility] for PT OT consult in the morning and evaluation for short-term rehab as needed. Dr. Moreno accepts patient at 2140 Impression Primary Impression: Insufficiency fracture Additional Impression: Left hip pain Disposition: ADMITTED INPATIENT Condition: Stable Admissions Decision to Admit Reason: Admit from ER (General) Decision to Admit/Date: Dec 03, 2021 Time/Decision to Admit Time: 21:46 Departure-Patient Inst. Referrals: GABRIEL RAMIREZ MD (PCP/Family) Primary Care Physician FIONA BARNES DO Dec 03, 2021 21:10
--- NOTE | 2021-12-03 21:23 | Diagnostic Imaging Report ---
PROCEDURE: CT pelvis without contrast. TECHNIQUE: Multiple contiguous axial images were obtained through the pelvis without the use of intravenous contrast. Sagittal and coronal reformations were performed. Auto Exposure Controls were utilized during the CT exam to meet ALARA standards for radiation dose reduction. INDICATION: Left hip pain, popped, swelling. COMPARISON: None. FINDINGS: There is a nondisplaced fracture involving the posterior ischium just inferior to the acetabular joint space. No pathologic component is seen. There is diffuse osteopenia. There is no hip dislocation or femoral neck fracture. No joint effusion. IMPRESSION: Left posterior ilium fracture without displacement or intra-articular involvement. Dictated by: Dictated on workstation # [id number]
[2021-12-04] MEDS ORDERED: HYDROcodone/APAP 5 MG/325 MG (LORTAB) TAB PO ONE (01:15)
[2021-12-04 04:39] VITALS: BP 146/64
[2021-12-04] MEDS ORDERED: ONDANSETRON 4 MG/2 ML (SDV) Z0FRAN IV PRN (06:15)
[2021-12-04] MEDS: CATHETER FLUSH 10 ML SYR IV SCH ×3 (06:53→21:15)
[2021-12-04 07:52] VITALS: BP 162/56
[2021-12-04] MEDS: HYDROcodone/APAP 5 MG/325 MG (LORTAB) TAB PO PRN ×2 (09:35→17:24)
--- NOTE | 2021-12-04 11:14 | Consultation - Ortho ---
Consult - Ortho Subjective Date of Exam 12/04/21 Chief Complaint Left hip pain HPI/Events since last exam Mrs. Maldonado is a 80-year-old white female who experienced left hip pain yesterday afternoon when she reached down to pick a piece of paper up off the floor. She felt a pop and noted pain. She had difficulty bearing weight on the left lower extremity after the pop. She was seen in the emergency room where she is evaluated and x-rayed noted to have a fracture through her ischium on the left. No fracture of her hip. She has been treated for an endocrine tumor involving the left hip. This involved radiation treatment. This was noted on a PET scan. She had a recent PET scan but her daughter does not know exactly where her bony lesions are now. She was treated with radiation in [place] and sees an oncologist in [place]. She also saw an orthopedic oncologist for treatment of her hip lesion. They talked about internal fixation but she did not require surgery. Her last treatment was about 6 months ago according to her daughter. Prior to her hip pop yesterday she was not using a walker and had no hip pain Medical, Surgical History Reviewed and no additions or change Social History Reviewed and no additions or changes Family History Reviewed and no additions or change Review of Systems Reviewed and no additions or changes Allergies: Coded Allergies: atorvastatin (Verified Allergy, Mild, 12/04/21) patient states her feet and legs get cold Objective Exam Constitutional: [] HEENT: [] Neck: [] Cardiovascular: [] Respiratory: [] Gastrointestinal: [] Genitourinary: [] Skin: [] Back/Spine: [No pain with palpation] Extremities: [Pain over the left ischium. No pain over the greater trochanter. No hip pain with gentle range of motion. Negative straight leg raise. No pain at the knee or ankle. She can move her toes and has normal sensation. Good strength on dorsiflexion plantarflexion of the foot and ankle.] Neurologic: [] Psychiatric: [] Hematologic/lymphatic/immunologic: [] Vital Signs Vital Signs Date Time Temp Pulse Resp B/P (MAP) Pulse Ox O2 Delivery O2 Flow Rate FiO2 12/04/21 08:00 Room Air 12/04/21 07:52 36.2 64 18 162/56 (91) 93 Room Air 12/04/21 04:39 36.4 61 16 146/64 (91) 91 Room Air 12/04/21 03:19 Room Air 12/04/21 01:23 93 Room Air 12/04/21 01:15 61 20 159/70 92 12/04/21 01:00 57 18 167/57 91 12/04/21 00:00 59 20 178/62 93 12/03/21 23:00 59 177/55 93 12/03/21 22:00 56 20 183/56 94 12/03/21 21:30 57 20 170/58 93 12/03/21 21:00 58 20 158/53 92 12/03/21 20:30 59 20 173/59 92 12/03/21 20:00 65 18 147/83 92 12/03/21 19:50 36.1 12/03/21 19:45 67 18 189/67 94 12/03/21 19:37 36.6 62 20 184/52 (96) 12/03/21 19:30 66 20 184/52 94 I & O 12/04/21 07:00 Intake Total 0 ml Output Total 550 ml Balance -550 ml Lab Results Laboratory Tests 12/03/21 19:30: White Blood Count 4.8, Red Blood Count 4.45, Hemoglobin 11.7, Hematocrit 38, Mean Corpuscular Volume 85, Mean Corpuscular Hemoglobin 26, Mean Corpuscular Hemoglobin Concent 31L, Red Cell Distribution Width 19.6H, Platelet Count 133, Mean Platelet Volume , Immature Granulocyte % (Auto) 1, Neutrophils (%) (Auto) 68, Lymphocytes (%) (Auto) 19, Monocytes (%) (Auto) 10, Eosinophils (%) (Auto) 2, Basophils (%) (Auto) 1, Neutrophils # (Auto) 3.3, Lymphocytes # (Auto) 0.9L, Monocytes # (Auto) 0.5, Eosinophils # (Auto) 0.1, Basophils # (Auto) 0.0, Immature Granulocyte # (Auto) 0.1, Sodium Level 139, Potassium Level 4.2, Chloride Level 101, Carbon Dioxide Level 29, Anion Gap 9, Blood Urea Nitrogen 9, Creatinine 0.89, Estimat Glomerular Filtration Rate 61, BUN/Creatinine Ratio 10, Glucose Level 149H, Calcium Level 8.7, Corrected Calcium 9.1, Total Bilirubin 0.7, Aspartate Amino Transf (AST/SGOT) 13, Alanine Aminotransferase (ALT/SGPT) 6, Alkaline Phosphatase 97, Total Protein 7.3, Albumin 3.5 Imaging X-rays and CT scan were reviewed which shows no evidence of a bony lesion. No evidence of fracture involving the proximal femur or hip. There is a nondisplaced fracture noted through the ischium on the left on CT scan Assessment and Plan Assessment Pain improving since yesterday Problem List Unchanged Plan Treatment options were discussed with the patient and her daughter. I explained to them that I did not see any fracture in the hip or pelvis other than the ischium on the left. I do not see any evidence of destructive lesion or tumor. Same with radiology. I would recommend walker ambulation weightbearing as tolerated on the left lower extremity.If she continues with hip pain then follow-up with her orthopedic oncologist in [place] Final Diagonsis Nondisplaced ischial tuberosity fracture left pelvis Level of the visit: Level 3 ANDERSON HILL MD Dec 04, 2021 11:14
[2021-12-04] MEDS ORDERED: ASPI-999 PO (11:16)
[2021-12-04] MEDS ORDERED: APIX5TAB PO (11:16)
[2021-12-04] MEDS ORDERED: TRAM50TA3 PO (11:16)
[2021-12-04] MEDS ORDERED: OMG1KC PO (11:17)
[2021-12-04] MEDS ORDERED: GARL1TAB2 PO (11:17)
[2021-12-04] MEDS ORDERED: DOCU-26 PO (11:18)
[2021-12-04] MEDS ORDERED: ACET-2267 PO (11:18)
[2021-12-04 11:24] VITALS: BP 135/54
--- NOTE | 2021-12-04 11:49 | History & Physical-Hospitalist ---
ROBINSON HAYDEN 12/04/21 1149: History of Present Illness HPI/Chief Complaint This is a 80 y/o female with a PMH significant for an endocrine tumor involving her left hip s/p radiation to the effected area who presented to the ED with left hip pain. Pt states she was reaching over to grab a piece of paper when she felt a "pop" in her left hip which then lead to severe pain. Pain was described as sudden in onset with a sharp quality that worsened with movement. EMS immobilized the hip en route and gave fentanyl for pain control, which helped. In the ED, no obvious deformity or rotation was noted. CT performed in the ED noted diffuse osteopenia, and a nondisplaced fracture of the left ilium. No other acute damon abnormalities were noted. Today, the patient states she is doing well and that her pain is well managed. She states the hip only bothers her when she moves around too much. Source: patient Exam Limitations: no limitations Date Seen 12/04/21 Time Seen by a Provider: 08:45 Attending Physician Regi Moreno MD PCP No,Local Physician Referring Physician Date of Admission Dec 04, 2021 at 02:30 Home Medications & Allergies Home Medications Reviewed patient Home Medication Reconciliation performed by pharmacy medication reconciliations unit technician and/or nursing. Patients Allergies have been reviewed. Allergies Allergies Coded Allergies atorvastatin (Verified Allergy, Mild, 12/04/21) patient states her feet and legs get cold Past Wmqswjh-Pimtgh-Skkxot Hx Patient Social History Tobacco Use?: Yes Tobacco type used: Cigarettes Smoking Status: Current Everyday Smoker Smokeless Tobacco Frequency: Never a User Use of E-Cig and/or Vaping dev: No Substance use?: No Alcohol Use?: No Pt feels they are or have been: No Immunizations Up To Date Date of Influenza Vaccine: Sep 03, 2022 First/Initial COVID19 Vaccinat: Second COVID19 Vaccination Gary: Tetanus Booster (TDap): Less Than 5 Years Hepatitis A: No Hepatitis B: No Current Status status: No status: No Advance Directives: Yes Advance Directive Location: Family to bring in copy Communicates: Verbally Primary Language: Somali Is interpretation needed?: No Past Medical History Surgeries: Section, Eye Surgery (cataract removal), Hysterectomy Atrial 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 Recieved radition at [facility]) Did You Recieve Any Treatments: Yes What Type of Treatment Did You: Radiation Review of Systems Constitutional: No chills, No dizziness, No fever EENTM: no symptoms reported Respiratory: no symptoms reported Cardiovascular: no symptoms reported Gastrointestinal: no symptoms reported Genitourinary: no symptoms reported Musculoskeletal: joint pain (Left hip) Skin: no symptoms reported Psychiatric/Neurological: No Symptoms Reported Physical Exam Physical Exam Vital Signs Vital Signs - First Documented 12/03/21 12/03/21 12/04/21 19:30 19:37 01:23 Temp 36.6 Pulse 66 Resp 20 B/P (MAP) 184/52 Pulse Ox 94 O2 Delivery Room Air Capillary Refill : Less Than 3 Seconds Height, Weight, BMI Height: '" Weight: lbs. oz. kg; 21.51 BMI Method: General Appearance: No Apparent Distress, WD/WN Eyes: Bilateral Eye Normal Inspection, Bilateral Eye PERRL, Bilateral Eye EOMI HEENT: PERRL/EOMI Neck: Non Tender Respiratory: Chest Non Tender, Lungs Clear, Normal Breath Sounds, No Respiratory Distress Cardiovascular: Regular Rate, Rhythm, No Gallop, No Murmur Gastrointestinal: Non Tender, Soft Rectal: Deferred Extremity: Other (Pain and tenderness over the left ischial spine. Moves foot and toes appropriately on effected limb) Neurologic/Psychiatric: Alert, Oriented x3 Skin: Normal Color, Warm/Dry Results Results/Procedures Labs Laboratory Tests 12/03/21 19:30 Patient resulted labs reviewed. Imaging: Reviewed Imaging Report Assessment/Plan Admission Diagnosis Nondisplaced ischial tuberosity fracture left pelvis Admission Status: Observation Assessment and Plan This is a 80 y/o female with a hx of radiation treatment to the left hip 2/2 an "endocrine tumor" who presents after a fracture of the left ischial tuberosity Diagnosis/Problems Diagnosis/Problems (1) Pathologic fracture of ilium Onset Date: ~ 11/2021 Status: Acute Assessment & Plan: - Pain currently well managed w/ PRN Lortab 5mg - Will plan for ambulation as tolerated - Consult ortho; appreciate recs - Consult PT/OT; appreciate recs Qualifiers: Encounter type: initial encounter Qualified Codes: M84.454A - Pathological fracture, pelvis, initial encounter for fracture CATHLEEN CANNON DO 12/05/21 0520: History of Present Illness HPI/Chief Complaint CC: back pain HPI: 80 yr old WF with history of neuro endocrine tumor receiving radiation at [facility]. Pt was recently diagnosed with atrial fibrillation maintained on oral anticoagulation. Pt presented following a fall and Dr. Bryan consulted but it appears she has a left posterior ilium fracture. We have consulted Dr. Mcleod. We will continue taking care of the pain and pt might be a candidate for rehab. Source: patient Exam Limitations: no limitations Past Svzwzxn-Vzfxjp-Umiprv Hx Patient Social History Marrital Status: single Employed/Student: retired Past Medical History Atrial Fibrillation Review of Systems Constitutional: see HPI, weakness Musculoskeletal: back pain, joint pain (Left hip) Physical Exam Physical Exam General Appearance: No Apparent Distress, Chronically ill Eyes: Right Eye Normal Inspection, Right Eye PERRL HEENT: PERRL/EOMI, Normal ENT Inspection, Pharynx Normal, Moist Mucous Membranes Neck: Full Range of Motion, Normal Inspection, Non Tender Respiratory: Chest Non Tender, Lungs Clear, Normal Breath Sounds, No Accessory Muscle Use, No Respiratory Distress Cardiovascular: Regular Rate, Rhythm, No Edema, No Gallop, No JVD, No Murmur, Normal Peripheral Pulses Gastrointestinal: Normal Bowel Sounds, No Organomegaly, No Pulsatile Mass, Non Tender, Soft Back: Normal Inspection, Decreased Range of Motion Extremity: Normal Capillary Refill, Normal Inspection, Non Tender, No Calf Tenderness, No Pedal Edema, Other (Pain and tenderness over the left ischial spine. Moves foot and toes appropriately on effected limb) Neurologic/Psychiatric: Alert, Oriented x3, No Motor/Sensory Deficits, Normal Mood/Affect Skin: Normal Color, Warm/Dry Lymphatic: No Adenopathy Assessment/Plan Admission Diagnosis Assessment: Left pelvic fracture Neuroendocrine tumor Undergoing radiation treatment AF PLan: Home meds Pain control Admission Status: Inpatient Order (span 2 midnights) Reason for Inpatient Admission: pelvic fracture Supervisory-Addendum Brief Verification & Attestation Participated in pt care: history, MDM, physical Personally performed: exam, history, MDM, supervision of care Care discussed with: Medical Student Procedures: n/a Results interpretation: Verified all documentation Verification and Attestation of Medical Student E/M Service A medical student performed and documented this service in my presence. I reviewed and verified all information documented by the medical student and made modifications to such information, when appropriate. I personally performed the physical exam and medical decision making. Cathleen Cannon, Dec 05, 2021,05:17 ROBINSON HAYDEN Dec 04, 2021 11:49 CATHLEEN CANNON DO Dec 05, 2021 05:20
--- NOTE | 2021-12-04 11:54 | Physical Therapy Evaluation ---
PT Evaluation-General Medical Diagnosis Admission Date Dec 04, 2021 at 02:30 Medical Diagnosis: left hip pain Onset Date: Dec 04, 2021 Therapy Diagnosis Therapy Diagnosis: generalized weaknes/debility Precautions Precautions/Isolations: Fall Prevention, Standard Precautions Referral Physician: Ketty Reason for Referral: Evaluation/Treatment Medical History Pertinent Medical History: Smoking Additional Medical History neuroendocrine cancer Current History EMS from home secondary patient felt a "pop" in her left hip while bending over to get something off floor. Reviewed History: Yes Social History Home: Single Level Current Living Status: Alone Prior Prior Level of Function SCALE: Activities may be completed with or without assistive devices. 4-Wuyvicybta-awxkqtw completes the activity by him/herself with no assistance from a helper. 5-Set-up or Clean-up Assistance-helper sets up or cleans up; patient completes activity. [place] assists only prior to or following the activity. 4-Supervision or Touching Assistance-helper provides verbal cues and/or touching/steadying and/or contact guard assistance as patient completes activity. Assistance may be provided throughout the activity or intermittently. 3-Partial/Moderate Assistance-helper does LESS THAN HALF the effort. [place] lifts, holds or supports trunk or limbs, but provides less than half the effort. 2-Substantial/Maximal Assistance-helper does MORE THAN HALF the effort. [place] lifts or holds trunk or limbs and provides more than half the effort. 3-Csiodjdhm-tbboow does ALL the effort. Patient does none of the effort to complete the activity. Or, the assistance of 2 or more helpers is required for the patient to complete the activity. If activity was not attempted, code reason: 7-Patient Refused. 9-Not Applicable-not attempted and the patient did not perform the activity before the current illness, exacerbation or injury. 10-Not Attempted due to Environmental Limitations-(lack of equipment, weather restraints, etc.). 88-Not Attempted due to Medical Conditions or Safety Concerns. Bed Mobility: 6 Transfers (B,C,W/C): 6 Gait: 6 Indoor Mobility (Ambulation): Independent PT Evaluation-Current Subjective Patient agrees to PT. Family present and very attentive. Objective Patient Orientation: Normal For Age Attachments: Mchugh Catheter ROM/Strength ROM Lower Extremities bilateral LE WFL Strength Lower Extremities 3/5 grossly bilateral LE (no formal testing) Integumentary/Posture Bladder Incontinence: Mchugh Cath Posture WFL Neuromuscular (Tone, Coordination, Reflexes) grossly intact Sensory Vision: Wears Glasses Hearing: Functional Transfers Lying to Sitting/Side of Bed(Q: 4 Sit to Stand (QC): 3 (mod) Chair/Eym-ht-Yshfr Xfer(QC): 3 (min) Gait Does the Patient Walk?: Yes Mode of Locomotion: Walk Anticipated Mode of Locomotion: Walk Walk 10 feet (QC): 3 Walk 50 ft with 2 Turns(QC): 3 Gait Assistive Device: FWW Comments/Gait Description slow, slightly antalgic Balance Sitting Static: Normal Sitting Dynamic: Normal Standing Static: Fair Standing Dynamic: Fair Picking up an Object (QC): 88 Assessment/Needs 80 y.o. female, will benefit from skilled PT to address functional strength and mobility to improve current LOF. Rehab Potential: Fair PT Residential Goals Residential Goals PT [place] Goals Time Frame: Dec 16, 2021 Roll Left & Right (QC): 5 Sit to Lying (QC): 5 Lying-Sitting on Side/Bed(QC): 5 Sit to Stand (QC): 5 Chair/Cgu-gc-Qjgdo Xfer(QC): 5 Toilet Transfer (QC): 5 Walk 10 feet (QC): 4 Walk 50ft with 2 Turns (QC): 4 Walk 150 ft (QC): 4 PT Plan Problem List Problem List: Activity Tolerance, Functional Strength, Safety, Balance, Gait, Transfer, Bed Mobility Treatment/Plan Treatment Plan: Continue Plan of Care Treatment Plan: Bed Mobility, Education, Functional Activity [place], Functional Strength, Gait, Safety, Therapeutic Exercise, Transfers Treatment Duration: Dec 16, 2021 Frequency: 6 times per week Estimated Hrs Per Day: .5 hour per day Patient and/or Family Agrees t: Yes Time/GCodes Time In: 1121 Time Out: 1133 Total Billed Treatment Time: 12 Total Billed Treatment 1 visit EVModC 12 min SAVANNAH MCDONALD PT Dec 04, 2021 11:54
--- NOTE | 2021-12-04 13:53 | Occupational Therapy Eval ---
OT Evaluation-General/PLF Medical Diagnosis Admission Date Dec 04, 2021 at 02:30 Medical Diagnosis: left hip pain Onset Date: Dec 04, 2021 Therapy Diagnosis Therapy Diagnosis: Impaired balance, strength, adl status Precautions Precautions/Isolations: Fall Prevention, Standard Precautions Referral Physician: Ketty Referral Reason: Evaluation/Treatment Medical History Pertinent Medical History: Smoking Additional Medical History endocrine tumor involving L hip, treated with radiation Current History Presents to ER with L hip pain. Imaging reveals no hip dislocation/fx or femoral neck fracture. Pt does have pelvis nondisplaced fx through ischium. Per Ortho orders, pt can be WBAT with walker. Reviewed History: Yes Social History Home: Single Level Current Living Status: Alone Pt currently lives alone in a single story home. Per family, plan is to move in with granddaughter who lives in a multilevel home. Goal to is have a chair lift put in. Prior to admission, pt was indep with adls and iadls. Family does assist with grocery shopping and transportation. Pt was using a walker RECREATIONAL LEADER and reports history of L knee buckling. ADL-Prior Level of Function SCALE: Activities may be completed with or without assistive devices. 0-Dcgohcjolm-yfyuqjq completes the activity by him/herself with no assistance from a helper. 5-Set-up or Clean-up Assistance-helper sets up or cleans up; patient completes activity. [place] assists only prior to or following the activity. 4-Supervision or Touching Assistance-helper provides verbal cues and/or touching/steadying and/or contact guard assistance as patient completes activity. Assistance may be provided throughout the activity or intermittently. 3-Partial/Moderate Assistance-helper does LESS THAN HALF the effort. [place] lifts, holds or supports trunk or limbs, but provides less than half the effort. 2-Substantial/Maximal Assistance-helper does MORE THAN HALF the effort. [place] lifts or holds trunk or limbs and provides more than half the effort. 5-Haeqmferw-aaiqjd does ALL the effort. Patient does none of the effort to complete the activity. Or, the assistance of 2 or more helpers is required for the patient to complete the activity. If activity was not attempted, code reason: 7-Patient Refused. 9-Not Applicable-not attempted and the patient did not perform the activity before the current illness, exacerbation or injury. 10-Not Attempted due to Environmental Limitations-(lack of equipment, weather restraints, etc.). 88-Not Attempted due to Medical Conditions or Safety Concerns. Self Care: Independent Functional Cognition: Independent DME/Equipment: Bath Bench, Bath Chair, Tub/Shower Drive Self: No OT Current Status Subjective Pt requesting to go home. Reports she needs to go to her doctors appointment in [place] on Saturday. Appearance Returned to sitting in recliner, all needs within reach, family in room. Mental Status/Objective Patient Orientation: Person, Place, Situation Attachments: Mchugh Catheter Current Glasses/Contacts: Yes Hand Dominance: Right Upper Extremity ROM WNL Upper Extremity Strength 3/5 bilateral shoulder 4/5 bilateral elbow Fair peoplesoft taleo manager strength, limited by arthritis/weakness ADL-Treatment On/Off Footwear (QC): 4 Toileting Hygiene (QC): 3 Pt sitting in chair at OT arrival. Able to don/doff bilateral socks without assi st. Reports mild discomfort in L hip, but no significant pain. Family repeating "don't do it mom if it hurts. Mom you know you don't have to do it." Pt did not appear to be in any distress during task. Sit<>stand: SBA. Daughter is very attentive and has tight peoplesoft taleo manager on gait belt when OT is attempting to walk with patient. Daughter even states "I help lower her because she is in too much pain," before letting pt try herself. While up, pt ambulated ~10 feet with Min a, L knee instability notable. Pt reports she does have a history of knee buckling but that it appears to be worse. Heavy reliance on walker during gait. At this time, pt would need assist with clothing management pre/post toileting due to needing BUE support. Education OT Patient Education: Correct positioning, Modified ADL techniques, Progress toward Goal/Update tx plan, Purpose of tx/functional activities, Reviewed precautions, Safety issues, Transfer techniques, Use of adapted equipment Teaching Recipient: Patient, Family Teaching Methods: Demonstration, Discussion Response to Teaching: Verbalize Understanding, Reinforcement Needed OT Claim Clinician Goals [facility] Goals Time Frame: Dec 22, 2021 Oral Hygiene (QC): 4 Toileting Hygiene (QC): 4 Shower/Bathe Self (QC): 4 Upper Body Dressing (QC): 4 Lower Body Dressing (QC): 4 On/Off Footwear (QC): 4 1=Demonstrate adherence to instructed precautions during ADL tasks. 2=Patient will verbalize/demonstrate understanding of assistive devices/modifications for ADL. 3=Patient will improve strength/tolerance for activity to enable patient to perform ADL's. OT Education/Plan Problem List/Assessment Assessment: Decreased Activ Tolerance, Decreased Safety Aware, Decreased UE Strength, Impaired Funct Balance, Impaired I ADL's, Impaired Self-Care Skills Discharge Recommendations Plan/Recommendations: Continue POC Therapy Discharge Recommendati: Homemaker Support, Post Acute OT Equpiment Recommendations-D/C: Wrapper Layer And Examiner Soft Work Treatment Plan/Plan of Care Treatment,Training & Education: Yes Patient would benefit from OT for education, treatment and training to promote independence in ADL's, mobility, safety and/or upper extremity function for ADL's. Plan of Care: ADL Retraining, Caregiver Training, Functional Mobility, UE Funct Exercise/Act Treatment Duration: Dec 22, 2021 Frequency: 3 times per week Estimated Hrs Per Day: .25 hour per day Rehab Potential: Fair 3-5x/week Time/GCodes Start Time: 13:14 Stop Time: 13:33 Total Time Billed (hr/min): 19 Billed Treatment Time 1 visit Ruma Garibay OT Dec 04, 2021 13:53
[2021-12-04] MEDS: SENNA W/DOCUSATE (SENOKOT S) TABLET PO SCH (14:00)
[2021-12-04 16:00] VITALS: BP 134/58
[2021-12-04 19:14] VITALS: BP 134/58
[2021-12-04] MEDS: polyethylene glycoL POWDER 17 GM (MIRALAX) PACK PO SCH (21:15)
[2021-12-04 23:53] VITALS: BP 157/57
[2021-12-05 03:28] VITALS: BP 137/63
[2021-12-05] MEDS ORDERED: DOCUSATE SODIUM 100 MG (COLACE) CAP PO PRN (05:30)
[2021-12-05] MEDS ORDERED: ACETAMINOPHEN 500 MG TAB (TYLENOL) PO PRN (05:30)
[2021-12-05] MEDS: CATHETER FLUSH 10 ML SYR IV SCH ×3 (05:48→19:55)
[2021-12-05 06:17] LABS: HEMATOCRIT 36 % (35-52); WHITE BLOOD COUNT 4.8 10^3/uL (4.3-11.0)
[2021-12-05 06:19] LABS: BASOPHILS % (AUTO) 1 % (0-10); EOSINOPHILS # (AUTO) 0.1 10^3/uL (0.0-0.3); EOSINOPHILS % (AUTO) 2 % (0-10); LYMPHOCYTES # (AUTO) 1.1 10^3/uL (1.0-4.0); LYMPHOCYTES % (AUTO) 22 % (12-44); MEAN CORPUSCULAR HEMOGLOBIN 26 pg (25-34); MEAN CORPUSCULAR HGB CONC 31 g/dL (32-36); MEAN CORPUSCULAR VOLUME 85 fL (80-99); MONOCYTES # (AUTO) 0.4 10^3/uL (0.0-1.0); MONOCYTES % (AUTO) 9 % (0-12); NEUTROPHILS # (AUTO) 3.1 10^3/uL (1.8-7.8); NEUTROPHILS % (AUTO) 65 % (42-75); PLATELET COUNT 123 10^3/uL (130-400)
[2021-12-05 06:31] LABS: ALBUMIN 2.9 GM/DL (3.2-4.5); POTASSIUM 3.7 MMOL/L (3.6-5.0)
[2021-12-05 06:32] LABS: CALCIUM 8.4 MG/DL (8.5-10.1)
[2021-12-05 06:34] LABS: TOTAL PROTEIN 6.5 GM/DL (6.4-8.2)
[2021-12-05 06:35] LABS: BILIRUBIN,TOTAL 0.9 MG/DL (0.1-1.0)
[2021-12-05 06:37] LABS: CREATININE SERUM 0.86 MG/DL (0.60-1.30)
[2021-12-05 06:41] LABS: SMEAR SCAN COMMENT YES
[2021-12-05 08:24] VITALS: BP 149/63
[2021-12-05] MEDS: ASPIRIN 81 MG CHEW (CHILDREN'S ASA) PO SCH (08:53)
[2021-12-05] MEDS: SENNA W/DOCUSATE (SENOKOT S) TABLET PO SCH ×2 (08:53→19:55)
[2021-12-05] MEDS: APIXABAN 5 MG (ELIQUIS) TABLET PO SCH ×2 (08:54→19:54)
--- NOTE | 2021-12-05 09:42 | Occupational Ther Daily Note ---
OT Current Status-Daily Note Subjective Pt reports LLE pain as 9/10. RN notified and pain meds given during session. Appearance Pt left supine in bed, granddaughter in room. All needs within reach. ADL-Treatment Therapy Code Descriptions/Definitions Functional [place] Measure: 0=Not Assessed/NA 4=Minimal Assistance 1=Total Assistance 5=Supervision or Setup 2=Maximal Assistance 6=Modified [place] 3=Moderate Assistance 7=Complete IndependenceSCALE: Activities may be completed with or without assistive devices. 2-Rdzchiwugj-utabfjh completes the activity by him/herself with no assistance from a helper. 5-Set-up or Clean-up Assistance-helper sets up or cleans up; patient completes activity. [place] assists only prior to or following the activity. 4-Supervision or Touching Assistance-helper provides verbal cues and/or touching/steadying and/or contact guard assistance as patient completes activity. Assistance may be provided throughout the activity or intermittently. 3-Partial/Moderate Assistance-helper does LESS THAN HALF the effort. [place] lifts, holds or supports trunk or limbs, but provides less than half the effort. 2-Substantial/Maximal Assistance-helper does MORE THAN HALF the effort. [place] lifts or holds trunk or limbs and provides more than half the effort. 3-Ugskiqhoi-afopoc does ALL the effort. Patient does none of the effort to complete the activity. Or, the assistance of 2 or more helpers is required for the patient to complete the activity. If activity was not attempted, code reason: 7-Patient Refused. 9-Not Applicable-not attempted and the patient did not perform the activity before the current illness, exacerbation or injury. 10-Not Attempted due to Environmental Limitations-(lack of equipment, weather restraints, etc.). 88-Not Attempted due to Medical Conditions or Safety Concerns. Other Treatment Pt and granddaughter reports that the patient just returned to bed from sitting in the chair. Pt declines getting back up. Per granddaughter, pt's knee buckled when transferring back to bed and she required extra assist to keep pt from falling. Pt agreeable to complete bed level UE exercises. She was able to perform all movements through full range, 12x1 in all planes. Min cues for technique. Tolerates well, pt will be able to add extra resistance next session. Pt frequently asking when she can go home. Education OT Patient Education: Correct positioning, Energy conservation, Exercise pro gram, Progress toward Goal/Update tx plan, Purpose of tx/functional activities, Reviewed precautions, Transfer techniques Teaching Recipient: Patient, Family Teaching Methods: Demonstration, Discussion Response to Teaching: Verbalize Understanding, Return Demonstration, Reinforcement Needed OT Children Teacher Goals Children Teacher Goals Time Frame: Dec 22, 2021 Oral Hygiene (QC): 4 Toileting Hygiene (QC): 4 Shower/Bathe Self (QC): 4 Upper Body Dressing (QC): 4 Lower Body Dressing (QC): 4 On/Off Footwear (QC): 4 1=Demonstrate adherence to instructed precautions during ADL tasks. 2=Patient will verbalize/demonstrate understanding of assistive devices/modific ations for ADL. 3=Patient will improve strength/tolerance for activity to enable patient to perform ADL's. OT Education/Plan Problem List/Assessment Assessment: Decreased Activ Tolerance, Decreased UE Strength, Impaired Funct Balance, Impaired Self-Care Skills Discharge Recommendations Plan/Recommendations: Continue POC Treatment Plan/Plan of Care Treatment,Training & Education: Yes Patient would benefit from OT for education, treatment and training to promote independence in ADL's, mobility, safety and/or upper extremity function for ADL's. Plan of Care: ADL Retraining, Caregiver Training, Functional Mobility, UE Funct Exercise/Act Treatment Duration: Dec 22, 2021 Frequency: 3 times per week Estimated Hrs Per Day: .25 hour per day Rehab Potential: Fair Time/GCodes Start Time: 08:49 Stop Time: 08:59 Total Time Billed (hr/min): 10 Billed Treatment Time 1 visit EX Ruma Alejandro OT Dec 05, 2021 09:42
--- NOTE | 2021-12-05 10:05 | Progress Note ---
Subjective Date Seen by a Provider: Dec 05, 2021 Time Seen by a Provider: 10:00 Subjective/Events-last exam Pt doing really well Pt wants to go home tomorrow Pt not willing to come to Inpatient Rehab Checked meds and labs Social Work consult for home care Granddaughter can't understand why Medicare would not pay for a stair lift chair Review of Systems General: Fatigue, Malaise Objective Exam Last Set of Vital Signs Vital Signs Date Time Temp Pulse Resp B/P (MAP) Pulse Ox O2 Delivery O2 Flow Rate FiO2 12/05/21 08:24 36.0 67 18 149/63 (91) 91 Room Air 12/04/21 23:53 2.00 Capillary Refill : Less Than 3 Seconds I&O Intake and Output 12/05/21 00:00 Intake Total 370 ml Output Total 1650 ml Balance -1280 ml Intake Oral 370 ml Output Urine Total 1650 ml # Voids 3 Daily Weight Change Yes, 2-13 lbs General: Alert, Oriented X3, Cooperative, No Acute Distress Lungs: Clear to Auscultation, Normal Air Movement Heart: Regular Rate, Normal S1, Normal S2, No Murmurs Psych/Mental Status: Mental Status NL, Mood NL Results Lab Laboratory Tests 12/05/21 05:23: White Blood Count 4.8, Red Blood Count 4.19, Hemoglobin 11.0L, Hematocrit 36, Mean Corpuscular Volume 85, Mean Corpuscular Hemoglobin 26, Mean Corpuscular Hemoglobin Concent 31L, Red Cell Distribution Width 19.1H, Platelet Count 123L, Mean Platelet Volume , Immature Granulocyte % (Auto) 1, Neutrophils (%) (Auto) 65, Lymphocytes (%) (Auto) 22, Monocytes (%) (Auto) 9, Eosinophils (%) (Auto) 2, Basophils (%) (Auto) 1, Neutrophils # (Auto) 3.1, Lymphocytes # (Auto) 1.1, Monocytes # (Auto) 0.4, Eosinophils # (Auto) 0.1, Basophils # (Auto) 0.0, Immature Granulocyte # (Auto) 0.0, Percent Immature Platelet Fraction 21.9H, Sodium Level 136, Potassium Level 3.7, Chloride Level 99, Carbon Dioxide Level 28, Anion Gap 9, Blood Urea Nitrogen 6L, Creatinine 0.86, Estimat Glomerular Filtration Rate 64, BUN/Creatinine Ratio 7, Glucose Level 93, Calcium Level 8.4L , Corrected Calcium 9.3, Total Bilirubin 0.9, Aspartate Amino Transf (AST/SGOT) 12, Alanine Aminotransferase (ALT/SGPT) 7, Alkaline Phosphatase 80, Total Protein 6.5, Albumin 2.9L, Smear Scan YES Assessment/Plan Assessment/Plan Assess & Plan/Chief Complaint Assessment: Left pelvic fracture Neuroendocrine tumor Undergoing radiation treatment AF Plan: PT OT Declines IRF DC tomorrow CATHLEEN CANNON DO Dec 05, 2021 10:05
[2021-12-05 11:45] VITALS: BP 155/58
--- NOTE | 2021-12-05 12:02 | Physical Therapy Daily Note ---
PT Daily Note-Current Subjective Patient agrees to PT. Family present. Mental Status Patient Orientation: Normal For Age Transfers SCALE: Activities may be completed with or without assistive devices. 0-Hmiswmjmqu-zysqaki completes the activity by him/herself with no assistance from a helper. 5-Set-up or Clean-up Assistance-helper sets up or cleans up; patient completes activity. [place] assists only prior to or following the activity. 4-Supervision or Touching Assistance-helper provides verbal cues and/or touching/steadying and/or contact guard assistance as patient completes activity. Assistance may be provided throughout the activity or intermittently. 3-Partial/Moderate Assistance-helper does LESS THAN HALF the effort. [place] lifts, holds or supports trunk or limbs, but provides less than half the effort. 2-Substantial/Maximal Assistance-helper does MORE THAN HALF the effort. [place] lifts or holds trunk or limbs and provides more than half the effort. 4-Bblykfzco-hycxsc does ALL the effort. Patient does none of the effort to complete the activity. Or, the assistance of 2 or more helpers is required for the patient to complete the activity. If activity was not attempted, code reason: 7-Patient Refused. 9-Not Applicable-not attempted and the patient did not perform the activity before the current illness, exacerbation or injury. 10-Not Attempted due to Environmental Limitations-(lack of equipment, weather restraints, etc.). 88-Not Attempted due to Medical Conditions or Safety Concerns. Lying to Sitting/Side of Bed(Q: 4 Sit to Stand (QC): 3 Chair/Jhu-fv-Evxob Xfer(QC): 3 Gait Training Does the Patient Walk?: Yes Distance: 50' Walk 10 feet (QC): 4 Walk 50 ft with 2 Turns(QC): 4 Gait Assistive Device: FWW slow, antalgic, step to gait sequence Exercises Supine Ex: Ankle pumps, Quad Set, Heel Slides, Straight leg raise Supine Reps: 12 Seated Therapy Exercises: Ankle pumps, Long arc quads, Hip flexion Seated Reps: 12 Assessment Issued HEP to family and patient. Continue to address mobility. PT Box Toe Cutter Goals Box Toe Cutter Goals PT Alf Goals Time Frame: Dec 16, 2021 Roll Left & Right (QC): 5 Sit to Lying (QC): 5 Lying-Sitting on Side/Bed(QC): 5 Sit to Stand (QC): 5 Chair/Bab-lw-Igqah Xfer(QC): 5 Toilet Transfer (QC): 5 Walk 10 feet (QC): 4 Walk 50ft with 2 Turns (QC): 4 Walk 150 ft (QC): 4 PT Plan Treatment/Plan Treatment Plan: Continue Plan of Care Treatment Plan: Bed Mobility, Education, Functional Activity [place], Functional Strength, Gait, Safety, Therapeutic Exercise, Transfers Treatment Duration: Dec 16, 2021 Frequency: 6 times per week Estimated Hrs Per Day: .5 hour per day Patient and/or Family Agrees t: Yes Time/GCodes Time In: 1130 Time Out: 1144 Total Billed Treatment Time: 14 Total Billed Treatment 1 visit FA 14 min SAVANNAH MCDONALD PT Dec 05, 2021 12:02
[2021-12-05 16:00] VITALS: BP 182/74
[2021-12-05] MEDS: polyethylene glycoL POWDER 17 GM (MIRALAX) PACK PO SCH (19:42)
[2021-12-05 20:09] VITALS: BP 181/89
[2021-12-05] MEDS ORDERED: amLODIPine 5 MG (NORVASC) TAB PO ONE (20:30)
[2021-12-05] MEDS ORDERED: cloNIDine 0.1 MG (CATAPRES) TAB PO PRN (20:30)
[2021-12-06] VITALS: BP 148/64
[2021-12-06 04:00] VITALS: BP 169/71
[2021-12-06] MEDS: CATHETER FLUSH 10 ML SYR IV SCH ×2 (06:11→09:50)
[2021-12-06 07:47] LABS: BASOPHILS % (AUTO) 1 % (0-10)
[2021-12-06 07:48] LABS: EOSINOPHILS # (AUTO) 0.1 10^3/uL (0.0-0.3); EOSINOPHILS % (AUTO) 2 % (0-10); HEMATOCRIT 37 % (35-52); HEMOGLOBIN 11.3 g/dL (11.5-16.0); LYMPHOCYTES % (AUTO) 25 % (12-44); MEAN CORPUSCULAR HEMOGLOBIN 26 pg (25-34); MEAN CORPUSCULAR HGB CONC 31 g/dL (32-36); MEAN CORPUSCULAR VOLUME 85 fL (80-99); MONOCYTES # (AUTO) 0.4 10^3/uL (0.0-1.0); MONOCYTES % (AUTO) 10 % (0-12); NEUTROPHILS # (AUTO) 2.5 10^3/uL (1.8-7.8); NEUTROPHILS % (AUTO) 61 % (42-75); PLATELET COUNT 121 10^3/uL (130-400); WHITE BLOOD COUNT 4.1 10^3/uL (4.3-11.0)
[2021-12-06 07:58] LABS: ALBUMIN 2.9 GM/DL (3.2-4.5); POTASSIUM 3.8 MMOL/L (3.6-5.0)
[2021-12-06 07:59] LABS: CALCIUM 8.5 MG/DL (8.5-10.1)
[2021-12-06 08:00] VITALS: BP 150/67
[2021-12-06 08:00] LABS: TOTAL PROTEIN 6.5 GM/DL (6.4-8.2)
[2021-12-06 08:02] LABS: BILIRUBIN,TOTAL 0.7 MG/DL (0.1-1.0)
[2021-12-06 08:04] LABS: CREATININE SERUM 0.82 MG/DL (0.60-1.30)
[2021-12-06] MEDS ORDERED: amLODIPine 5 MG (NORVASC) TAB PO SCH (09:00)
--- NOTE | 2021-12-06 09:21 | Occupational Ther Daily Note ---
OT Current Status-Daily Note Subjective Pt Denies pain. She verbalizes and appears to be feeling much better. Appearance Left sitting on side of bed, all needs within reach, granddaughter in room. Mental Status/Objective Patient Orientation: Person, Place, Situation ADL-Treatment Therapy Code Descriptions/Definitions Functional [place] Measure: 0=Not Assessed/NA 4=Minimal Assistance 1=Total Assistance 5=Supervision or Setup 2=Maximal Assistance 6=Modified [place] 3=Moderate Assistance 7=Complete IndependenceSCALE: Activities may be completed with or without assistive devices. 3-Mlifkwfvlh-hhmhbxc completes the activity by him/herself with no assistance from a helper. 5-Set-up or Clean-up Assistance-helper sets up or cleans up; patient completes activity. [place] assists only prior to or following the activity. 4-Supervision or Touching Assistance-helper provides verbal cues and/or touching/steadying and/or contact guard assistance as patient completes activity. Assistance may be provided throughout the activity or intermittently. 3-Partial/Moderate Assistance-helper does LESS THAN HALF the effort. [place] lifts, holds or supports trunk or limbs, but provides less than half the effort. 2-Substantial/Maximal Assistance-helper does MORE THAN HALF the effort. [place] lifts or holds trunk or limbs and provides more than half the effort. 4-Fokupvvwm-suuwhc does ALL the effort. Patient does none of the effort to complete the activity. Or, the assistance of 2 or more helpers is required for the patient to complete the activity. If activity was not attempted, code reason: 7-Patient Refused. 9-Not Applicable-not attempted and the patient did not perform the activity before the current illness, exacerbation or injury. 10-Not Attempted due to Environmental Limitations-(lack of equipment, weather restraints, etc.). 88-Not Attempted due to Medical Conditions or Safety Concerns. Oral Hygiene (QC): 4 On/Off Footwear: 5 Pt sitting on edge of bed at therapy arrival. Sit<>stand: CGA. Cues for correct hand placement. She ambulated to/from bathroom with SBA-CGA and use of walker. No knee instability noted this date. She stood at sink for >4 minutes to brush teeth and wash face. No unsteadiness with zero UE support. Pt requested to be left sitting on edge of bed at end of session. Education OT Patient Education: Progress toward Goal/Update tx plan, Purpose of tx/ functional activities, Transfer techniques Teaching Recipient: Patient, Family Teaching Methods: Discussion Response to Teaching: Verbalize Understanding OT Control Integration Engineer Goals Control Integration Engineer Goals Time Frame: Dec 22, 2021 Oral Hygiene (QC): 4 Toileting Hygiene (QC): 4 Shower/Bathe Self (QC): 4 Upper Body Dressing (QC): 4 Lower Body Dressing (QC): 4 On/Off Footwear (QC): 4 1=Demonstrate adherence to instructed precautions during ADL tasks. 2=Patient will verbalize/demonstrate understanding of assistive devices/modifications for ADL. 3=Patient will improve strength/tolerance for activity to enable patient to perform ADL's. OT Education/Plan Problem List/Assessment Assessment: Decreased Activ Tolerance, Decreased UE Strength, Impaired Funct Balance, Impaired Self-Care Skills Discharge Recommendations Plan/Recommendations: Continue POC Therapy Discharge Recommendati: Homemaker Support, Home & Family Treatment Plan/Plan of Care Treatment,Training & Education: Yes Patient would benefit from OT for education, treatment and training to promote independence in ADL's, mobility, safety and/or upper extremity function for ADL's. Plan of Care: ADL Retraining, Caregiver Training, Functional Mobility, UE Funct Exercise/Act Treatment Duration: Dec 22, 2021 Frequency: 3 times per week Estimated Hrs Per Day: .25 hour per day Rehab Potential: Fair Time/GCodes Start Time: 08:52 Stop Time: 09:04 Total Time Billed (hr/min): 12 Billed Treatment Time 1 visit ADL Ruma Alejandro OT Dec 06, 2021 09:21
[2021-12-06] MEDS: SENNA W/DOCUSATE (SENOKOT S) TABLET PO SCH (09:49)
[2021-12-06] MEDS: ASPIRIN 81 MG CHEW (CHILDREN'S ASA) PO SCH (09:49)
[2021-12-06] MEDS: APIXABAN 5 MG (ELIQUIS) TABLET PO SCH (09:49)
--- NOTE | 2021-12-06 09:55 | Physical Therapy Daily Note ---
PT Daily Note-Current Subjective Pt in bed upon arrival asleep but awakens and agrees to PT. Family is present. Says her (L) hip only hurts a little when she is up and walking but does not rate. Mental Status Patient Orientation: Person, Place, Time, Normal For Age Transfers SCALE: Activities may be completed with or without assistive devices. 1-Shjhkoeasv-yktqqpt completes the activity by him/herself with no assistance from a helper. 5-Set-up or Clean-up Assistance-helper sets up or cleans up; patient completes activity. [place] assists only prior to or following the activity. 4-Supervision or Touching Assistance-helper provides verbal cues and/or touch ing/steadying and/or contact guard assistance as patient completes activity. Assistance may be provided throughout the activity or intermittently. 3-Partial/Moderate Assistance-helper does LESS THAN HALF the effort. [place] lifts, holds or supports trunk or limbs, but provides less than half the effort. 2-Substantial/Maximal Assistance-helper does MORE THAN HALF the effort. [place] lifts or holds trunk or limbs and provides more than half the effort. 8-Wiqswqxxu-opvyfw does ALL the effort. Patient does none of the effort to complete the activity. Or, the assistance of 2 or more helpers is required for the patient to complete the activity. If activity was not attempted, code reason: 7-Patient Refused. 9-Not Applicable-not attempted and the patient did not perform the activity before the current illness, exacerbation or injury. 10-Not Attempted due to Environmental Limitations-(lack of equipment, weather restraints, etc.). 88-Not Attempted due to Medical Conditions or Safety Concerns. Lying to Sitting/Side of Bed(Q: 4 Sit to Stand (QC): 4 Gait Training Does the Patient Walk?: Yes Distance: 125' Walk 10 feet (QC): 4 Walk 50 ft with 2 Turns(QC): 4 Gait Persons Needed: 1 Gait Assistive Device: FWW Slow gait pattern and antalgic on LLE. Amb w/ shortened stride and step lengths. Exercises Seated Therapy Exercises: Ankle pumps, Long arc quads, Hip flexion, Hamstring Curls, Hip abd/add Seated Reps: 15 Standing: Sit to Stand Standing Reps: 2 Treatments Pt sits up from bed to EOB and then performs sit to stand and then ambulates out of room and into barrientos. Then pt amb back to room and performs seated exs at EOB. Pt sitting EOB w/ family present as PT departs w/ all needs met and call light nearby. Assessment Current Status: Good Progress Pt able to increase amb distance this date. Pt requries verbal and tactile cues for hand and foot placement during amb. Will progress pt as pt tolerates. PT Color Maker Dyer Goals Color Maker Dyer Goals PT Assisted Goals Time Frame: Dec 16, 2021 Roll Left & Right (QC): 5 Sit to Lying (QC): 5 Lying-Sitting on Side/Bed(QC): 5 Sit to Stand (QC): 5 Chair/Dvh-cs-Mrqvq Xfer(QC): 5 Toilet Transfer (QC): 5 Walk 10 feet (QC): 4 Walk 50ft with 2 Turns (QC): 4 Walk 150 ft (QC): 4 PT Plan Problem List Problem List: Activity Tolerance, Functional Strength, Safety Treatment/Plan Treatment Plan: Continue Plan of Care Treatment Plan: Bed Mobility, Education, Functional Activity [place], Functional Strength, Gait, Safety, Therapeutic Exercise, Transfers Treatment Duration: Dec 16, 2021 Frequency: 6 times per week Estimated Hrs Per Day: .5 hour per day Patient and/or Family Agrees t: Yes Safety Risks/Education Patient Education: Gait Training Teaching Recipient: Patient, Family Teaching Methods: Discussion Response to Teaching: Return Demonstration Time/GCodes Time In: 837 Time Out: 849 Total Billed Treatment Time: 12 Total Billed Treatment 1, EX 12 min MEMO PICKENS PTA Dec 06, 2021 09:55
[2021-12-06] MEDS ORDERED: ALPRAZolam 0.25 MG (XANAX) TAB PO NR (11:00)
[2021-12-06] MEDS ORDERED: ALPRAZolam 0.25 MG (XANAX) TAB PO PRN (11:00)
[2021-12-06] MEDS ORDERED: AMLO-250 PO (11:53)
[2021-12-06] MEDS ORDERED: ACHD5005 PO (11:53)
--- NOTE | 2021-12-06 11:55 | D/C HH Face to Face Order ---
D/C Face to Face Orders Reconcile Patient Problems Problems Reviewed?: Yes Instructions for Patient [place] Patient Instructions/FollowUp: PCP 1 week Physician to follow Patient: PCP Discharge Diet for Home: No Restrictions Patient Problems: Pelvic fracture Patient Data-Allergies,Ht & Wt Patient Allergies: Coded Allergies: atorvastatin (Verified Allergy, Mild, 12/04/21) patient states her feet and legs get cold Home Health Need/Face to Face Date of Face to Face: Dec 06, 2021 Clinical Findings: Instability, Muscle weakness, Pain with ambulation, Unsteady gait I have seen Pt [id number]: Yes Discharged To: Home Diagnosis/Conditions: Pelvic fracture Patient is Homebound due to: Pain w/ambulation Homebound Status Due to the above stated illness, injury or surgical procedure (medical condition or diagnosis) and associated clinical findings, the patient is homebound because of his/her inability to leave home except with aid of a supportive device and/or person AND leaving the home requires a considerable and taxing effort or is medically contraindicated. Pt req the following assistanc: Walker Home Health Nursing Orders Home Health Services Order: Nursing Services, Apparel Designer-Evaluate & Treat, Physical Therapy-Evaluate & Treat Certify Stmt I certify that this patient is under my care and that I, a nurse practitioner or a physician; a account assistant working with me, had a face to face encounter that - meets the physician face to face encounter requirements with this patient as dated. CATHLEEN CANNON DO Dec 06, 2021 11:55
--- NOTE | 2021-12-06 11:56 | Discharge Summary ---
Discharge Summary Hospital Course Was the Problem List Reviewed?: Yes Problems/Dx: (1) Pathologic fracture of ilium Status: Acute Qualifiers: Qualified Codes: M84.454A - Pathological fracture, pelvis, initial encounter for fracture Hospital Course Date of Admission: Dec 04, 2021 at 02:30 Admission Diagnosis : Family Physician/Provider: No,Local Physician Date of Discharge: 12/06/21 Discharge Diagnosis: pelvic fracture, HTN Hospital Course: Pt had an uneventful hospital course after she was admitted for left hip pain and was found to have a pelvic fracture. Dr. Mcleod evaluated it to be non- surgical and offered a walker. Overall pt did very well. She had minimal pain with pain medication. She did have HTN so Norvasc was started. Pt was overall ready for discharge with and declined in-patient rehab. Labs and Pending Lab Test: Laboratory Tests 12/06/21 07:36: White Blood Count 4.1L, Red Blood Count 4.32, Hemoglobin 11.3L, Hematocrit 37, Mean Corpuscular Volume 85, Mean Corpuscular Hemoglobin 26, Mean Corpuscular Hemoglobin Concent 31L, Red Cell Distribution Width 19.0H, Platelet Count 121L, Mean Platelet Volume , Immature Granulocyte % (Auto) 2, Neutrophils (%) (Auto) 61, Lymphocytes (%) (Auto) 25, Monocytes (%) (Auto) 10, Eosinophils (%) (Auto) 2, Basophils (%) (Auto) 1, Neutrophils # (Auto) 2.5, Lymphocytes # (Auto) 1.0, Monocytes # (Auto) 0.4, Eosinophils # (Auto) 0.1, Basophils # (Auto) 0.0, Immature Granulocyte # (Auto) 0.1, Percent Immature Platelet Fraction 21.8H, Sodium Level 141, Potassium Level 3.8, Chloride Level 103, Carbon Dioxide Level 28, Anion Gap 10, Blood Urea Nitrogen 6L, Creatinine 0.82, Estimat Glomerular Filtration Rate 67, BUN/Creatinine Ratio 7, Glucose Level 99, Calcium Level 8.5, Corrected Calcium 9.4, Total Bilirubin 0.7, Aspartate Amino Transf (AST/SGOT) 11, Alanine Aminotransferase (ALT/SGPT) 7, Alkaline Phosphatase 78, Total Protein 6.5, Albumin 2.9L Home Meds Active HYDROcodone/APAP 5 MG/325 MG TAB (Acetaminophen/Hydrocodone Bitart) 1 Tab Tab 1 Ea PO Q4H PRN Amlodipine Besylate 5 Mg Tablet 5 Mg PO DAILY Reported Stool Softener (Docusate Sodium) 100 Mg Capsule 100 Mg PO DAILY PRN Tylenol Extra Strength (Acetaminophen) 500 Mg Tablet 500 Mg PO Q8H PRN Garlic 1 Each Tablet 1 Each PO DAILY Fish Oil 1,000 mg Capsule ([place] 3 Polyunsat Fatty Acids) 1,000 Mg Cap 1,000 Mg PO DAILY Aspirin 81 Mg Tab.chew 81 Mg PO DAILY Eliquis (Apixaban) 5 Mg Tablet 5 Mg PO BID Tramadol HCl 50 Mg Tablet 50 Mg PO Q8H PRN Assessment/Pt Instructions PCP 1 week Discharge Planning: <30 minutes discharge planning Discharge Instructions Discharge Diet: No Restrictions Discharge Physical Examination Vital Signs Vital Signs Date Time Temp Pulse Resp B/P (MAP) Pulse Ox O2 Delivery O2 Flow Rate FiO2 12/06/21 08:00 36.2 74 18 150/67 (94) 91 Room Air 12/04/21 23:53 2.00 General Appearance: No Apparent Distress, WD/WN, Chronically ill Allergies: Coded Allergies: atorvastatin (Verified Allergy, Mild, 12/04/21) patient states her feet and legs get cold Discharge Summary Date of Admission Dec 04, 2021 at 02:30 Date of Discharge Discharge Date: Dec 06, 2021 Admission Diagnosis Assessment: Left pelvic fracture Neuroendocrine tumor Undergoing radiation treatment AF PLan: Home meds Pain control Discharge Diagnosis (1) Pathologic fracture of ilium Onset Date: ~ 11/2021 Status: Acute Assessment & Plan: - Pain currently well managed w/ PRN Lortab 5mg - Will plan for ambulation as tolerated - Consult ortho; appreciate recs - Consult PT/OT; appreciate recs Qualifiers: Qualified Codes: M84.454A - Pathological fracture, pelvis, initial encounter for fracture CATHLEEN CANNON DO Dec 06, 2021 11:56
[2021-12-06 14:52] VITALS: BP 150/67
== END 2021-12-06 14:53 | disposition home health service (06) | DRG 543 ==
LOC: EDUNIT# 19:01 → ER FS 19:02 → 4TH 12-04 02:30
PROVIDERS: ADMIT Internal Medicine; ATTEND Internal Medicine
DX: M84.454A Pathological fracture, pelvis, initial encounter for fracture (principal); C7A.8 Other malignant neuroendocrine tumors; I10 Essential (primary) hypertension; W18.30XA Fall on same level, unspecified, initial encounter; F17.210 Nicotine dependence, cigarettes, uncomplicated; I48.91 Unspecified atrial fibrillation; Z92.3 Personal history of irradiation; Z79.01 Long term (current) use of anticoagulants
CPT/HCPCS: 36415; 51702; 72192; 73502; 73552; 80053; 85025